=== PATIENT | female | born 1955 | race Caucasian/White ===

== ENCOUNTER → 2016-08-22 16:07 | Outpatient (CLI) | payer MEDICARE, MEDICAID ==
[2016-06-07 11:50] VITALS: BMI 38.5
[~2016-08-22 16:07] MED LIST: ADVAIR 250/501 DISK INH; BAYER CHEWABLE81 MG PO; CELEXA40 MG PO; COZAAR50 MG PO; FLOMAX0.4 MG PO; HYDROXYZINE HCL50 MG PO; IBUPROFEN800 MG PO; LIPITOR40 MG PO; LOPRESSOR25 MG PO; LYRICA50 MG PO; METROGEL 0.75 %45 GM TOPICAL; NYSTATIN1 PWD TOPICAL; PROAIR HFA8.5 GM INH; ROPINIROLE HCL2 MG PO; SINGULAIR10 MG PO; VOLTAREN100 GM TOPICAL; ZONEGRAN100 MG PO
== END | disposition home or self-care (01) ==
LOC: D.MAMMO 09:30 → D.US 10:30 → D.MAMMO 16:07
DX: R92.8 Other abnormal and inconclusive findings on diagnostic imaging of breast (principal)

== ENCOUNTER 2017-03-20 18:38 | Emergency (ER) | payer MEDICARE, MEDICAID ==
[2016-06-07 11:50] VITALS: BMI 38.5
[2017-03-20 19:10] LABS: BASOPHILS 0.3 % (0-2); EOSINOPHILS 3.4 % (0-7); HEMATOCRIT 40.2 % (36.0-48.0); HEMOGLOBIN 13.7 g/dL (12-16); IMMATURE GRANULOCYTES 0.2 % (0-5); LYMPHOCYTES 39.9 % (15-50); MCH 32.2 pg (26.0-34.0); MCHC 34.1 g/dL (31.0-37.0); MCV 94.6 fL (80.0-100.0); MEAN PLATELET VOLUME 11.7 fL (7.4-10.4); MONOCYTES 6.8 % (2-11); NEUTROPHILS 49.4 % (40-80); PLATELET COUNT 124 10x3/uL (130-400); RBC 4.25 10x6/uL (4.00-5.40); RDW 14.4 % (11.5-14.5); WBC 5.8 10x3/uL (4.8-10.8)
[2017-03-20 19:24] LABS: ALBUMIN 3.3 g/dL (3.4-5.0); ALKALINE PHOSPHATASE 88 U/L (46-116); ALT (SGPT) 33 U/L (10-68); BILIRUBIN - TOTAL 0.39 mg/dL (0.2-1.3); CALC OSMOLALITY 284 mosm/kg (275-300); CALCIUM 8.6 mg/dL (8.5-10.1); CARBON DIOXIDE 24.9 mmol/L (21.0-32.0); CHLORIDE - SERUM 109 mmol/L (98-107); CREATININE - SERUM 0.9 mg/dL (0.6-1.3); GLUCOSE 127 mg/dL (74-106); POTASSIUM - SERUM 3.9 mmol/L (3.5-5.1); PROTEIN - SERUM 6.3 g/dL (6.4-8.2); SODIUM 141 mmol/L (136-145); UREA NITROGEN 18 mg/dL (7-18); eGFR NON AFRICAN AMERICAN 67 mL/min (90-120)
[2017-03-20 19:35] LABS: CHOL - HDL RATIO 13.4 ratio (2.3-4.1); CHOLESTEROL, TOTAL 188 mg/dL (0-200); CKMB 0.3 U/L (0.0-3.6); CREATINE KINASE 62 UL (21-215); HDL CHOLESTEROL 14 mg/dL (32-96); LDL CHOLESTEROL 130 mg/dL (0-100); LDL-HDL RATIO 9.3 ratio (1.5-3.5); TRIGLYCERIDE 220 mg/dL (30-200)
[2017-03-20 19:38] LABS: TROPONIN-I < 0.017 ng/mL (0.000-0.060)
== END 2017-03-20 22:30 | disposition home or self-care (01) ==
LOC: D.ER 18:38
PROVIDERS: Family Medicine
DX: R07.9 Chest pain, unspecified (principal); R06.02 Shortness of breath; Z86.711 Personal history of pulmonary embolism; E66.9 Obesity, unspecified; F17.200 Nicotine dependence, unspecified, uncomplicated; R11.0 Nausea; R06.00 Dyspnea, unspecified

== ENCOUNTER → 2017-10-31 19:29 | Outpatient (CLI) | payer MEDICARE ==
[2016-06-07 11:50] VITALS: BMI 38.5
== END | disposition home or self-care (01) ==
LOC: D.MAMMO 09:30
DX: R92.8 Other abnormal and inconclusive findings on diagnostic imaging of breast (principal)

== ENCOUNTER → 2017-12-28 13:30 | Outpatient (CLI) | payer MEDICARE, MEDICAID ==
[2016-06-07 11:50] VITALS: BMI 38.5
== END | disposition home or self-care (01) ==
LOC: D.MRI 13:30
DX: H53.2 Diplopia (principal)

== ENCOUNTER 2018-04-29 15:09 | Observation (INO) | payer MEDICARE, MEDICAID ==
[~2018-04-29] VITALS: Ht 167.6 cm; Wt 120.5 kg
[2018-04-29 15:49] LABS: BASOPHILS 0.4 % (0-2); EOSINOPHILS 2.5 % (0-7); HEMATOCRIT 36.1 % (36.0-48.0); HEMOGLOBIN 11.7 g/dL (12-16); IMMATURE GRANULOCYTES 0.2 % (0-5); LYMPHOCYTES 37.9 % (15-50); MCH 29.1 pg (26.0-34.0); MCHC 32.4 g/dL (31.0-37.0); MCV 89.8 fL (80.0-100.0); MEAN PLATELET VOLUME 11.7 fL (7.4-10.4); MONOCYTES 4.7 % (2-11); NEUTROPHILS 54.3 % (40-80); PLATELET COUNT 139 10x3/uL (130-400); RBC 4.02 10x6/uL (4.00-5.40); RDW 16.1 % (11.5-14.5); WBC 5.5 10x3/uL (4.8-10.8)
[2018-04-29 16:08] LABS: ALBUMIN 3.5 g/dL (3.4-5.0); ALKALINE PHOSPHATASE 77 U/L (46-116); ALT (SGPT) 40 U/L (10-68); BILIRUBIN - TOTAL 0.39 mg/dL (0.2-1.3); CALC OSMOLALITY 297 mosm/kg (275-300); CALCIUM 8.5 mg/dL (8.5-10.1); CARBON DIOXIDE 23.3 mmol/L (21.0-32.0); CHLORIDE - SERUM 110 mmol/L (98-107); CREATININE - SERUM 1.2 mg/dL (0.6-1.3); GLUCOSE 165 mg/dL (74-106); POTASSIUM - SERUM 3.7 mmol/L (3.5-5.1); PROTEIN - SERUM 6.3 g/dL (6.4-8.2); SODIUM 146 mmol/L (136-145); UREA NITROGEN 21 mg/dL (7-18); eGFR NON AFRICAN AMERICAN 48 mL/min (90-120)
[2018-04-29 16:19] LABS: CKMB 0.9 U/L (0.0-3.6); CREATINE KINASE 50 UL (21-215); PRO BNP 249 pg/mL (0-125); TROPONIN-I < 0.017 ng/mL (0.000-0.060)
[2018-04-29 17:04] VITALS: BP 144/75
[2018-04-29 18:40] VITALS: BP 138/72
[2018-04-29 19:34] VITALS: BP 149/77
[2018-04-29 20:34] VITALS: BP 139/76
[2018-04-29 21:30] VITALS: BP 162/87
[2018-04-29 23:12] LABS: CKMB 1.2 U/L (0.0-3.6); CREATINE KINASE 49 UL (21-215)
[2018-04-29 23:16] LABS: TROPONIN-I < 0.017 ng/mL (0.000-0.060)
[2018-04-30] MEDS ORDERED: GABAPENTIN100 MG PO (00:01)
[2018-04-30 04:32] VITALS: BP 116/49; Ht 167.6 cm; Wt 120.5 kg
[2018-04-30 05:11] LABS: BASOPHILS 0.2 % (0-2); EOSINOPHILS 0 % (0-7); HEMATOCRIT 36.3 % (36.0-48.0); HEMOGLOBIN 11.5 g/dL (12-16); IMMATURE GRANULOCYTES 0.3 % (0-5); LYMPHOCYTES 13.7 % (15-50); MCH 28.6 pg (26.0-34.0); MCHC 31.7 g/dL (31.0-37.0); MCV 90.3 fL (80.0-100.0); MEAN PLATELET VOLUME 12.5 fL (7.4-10.4); NEUTROPHILS 84.8 % (40-80); PLATELET COUNT 144 10x3/uL (130-400); RBC 4.02 10x6/uL (4.00-5.40); RDW 16.2 % (11.5-14.5)
[2018-04-30 05:15] VITALS: BP 164/68
[2018-04-30 05:46] LABS: ANION GAP 14.7 mmol/L (8-16); CALCIUM 8.6 mg/dL (8.5-10.1); CARBON DIOXIDE 23.3 mmol/L (21.0-32.0); CREATININE - SERUM 1.3 mg/dL (0.6-1.3)
[2018-04-30 05:53] LABS: CKMB 1.3 U/L (0.0-3.6); CREATINE KINASE 53 UL (21-215); TROPONIN-I < 0.017 ng/mL (0.000-0.060)
[2018-04-30] MEDS ORDERED: LATUDA40 MG PO (08:41)
[2018-04-30 08:49] VITALS: BP 130/82
[2018-04-30 09:16] LABS: CKMB 1.3 U/L (0.0-3.6); CREATINE KINASE 46 UL (21-215); TROPONIN-I < 0.017 ng/mL (0.000-0.060)
[2018-04-30 12:04] VITALS: BP 145/50
== END 2018-04-30 13:53 | disposition left against medical advice (07) ==
LOC: D.ER 15:09 → D.MS 20:50 → D.ER 20:50 → OBSVTIME 20:50 → D.MS 20:50
PROVIDERS: Family Medicine
DX: J44.1 Chronic obstructive pulmonary disease with (acute) exacerbation (principal); M54.9 Dorsalgia, unspecified; I10 Essential (primary) hypertension; G47.33 Obstructive sleep apnea (adult) (pediatric); F31.9 Bipolar disorder, unspecified; E11.40 Type 2 diabetes mellitus with diabetic neuropathy, unspecified; Z87.891 Personal history of nicotine dependence; E66.09 Other obesity due to excess calories; Z68.41 Body mass index [BMI] 40.0-44.9, adult

== ENCOUNTER 2018-06-11 12:15 | Outpatient (CLI) | payer MEDICARE, MEDICAID ==
[~2018-06-11] VITALS: Ht 167.6 cm; Wt 120.5 kg
--- NOTE | ~2018-06-11 | HEMODYNAMI ---
PATIENT:JACINDA DIEGO MEDICAL RECORD: [id number] : 53 LOCATION:[facility] ADMISSION DATE: 06/11/18 Generatedon:06/11/201816:01 Patient name: JACINDA DIEGO Patient #: [id number] SSN: [id number] : 1955 Date of study: 06/11/2018 Page: Of Hemodynamic Procedure Report Patient Data Patient Demographics Procedure consent was obtained First Name: JACINDA Gender: Female Last Name: JOHNATHON : 1955 Middle Initial: W Age: 62 year(s) Patient #: [id number] Race: Unknown SSN: [id number] Additional ID: [id number] Contact details Address: [address] [place] [address] State: [place] City: [place] Zip code: [address] Past Medical History Allergies Allergen Reaction Date Comments Reported Other allergy 06/11/2018 SACHI MENDOZA Admission Admission Data Admission Date: 06/11/2018 Admission Time: 12:15 Height (in.): 66 BSA: 2.25 (m2) Height (cm.): 167.64 BMI: 42.77 (kg/m2) Weight (lbs.): 265 Weight (kg.): 120.2 Procedure Procedure Types Cath Procedure Diagnostic Procedure [facility] w/Coronaries Sedation Charges Moderate Sedation up to 15 minutes PCI Procedure Coronary Stent Coronary Stent Initial Procedure Description Procedure Date Procedure Date: 06/11/2018 Procedure Start Time: 15:39 Procedure End Time: 16:00 Procedure Staff Name Function Tru Mendez MD Performing Physician Pooja Uriarte RT Monitor Sofia Hoffman RT Scrub Claudio Mejia RN Nurse Procedure Data Cath Procedure Fluoroscopy Diagnostic fluoroscopy Total fluoroscopy Time: 4.8 time: 4.8 min min Diagnostic fluoroscopy Total fluoroscopy dose: dose: 1072 mGy 1072 mGy Contrast Material Contrast Material Type Amount (ml) Isovue 300 95 Entry Location Entry Primary Successful Side Size Upsize Upsize Entry Closure Succes sful Closure Location (Fr) 1 (Fr) 2 (Fr) Remarks Device Remarks Radial Right 6 Fr artery Short Estimated blood loss: 10 ml Diagnostic catheters Device Type Used For End Catheter Placement DIAGNOSTIC [place] 110cm 5 Procedure Fr catheter ([id number]) Procedure Complications No complications Procedure Medications Medication Administration Route Dosage 0.9% NaCl I.V. 100 ml/hr Oxygen etCO2 Nasal cannula 2 l/min Heparin Flush Bag added to field 2 bags (1000units/500ml NS) Lidocaine 2% added to field 20 Radial Cocktail added to field 1 syringe (Verapomil 2mg/Nitro 400mcg/Heparin 1500units) Versed I.V. 2 mg Fentanyl I.V. 100 mcg Versed I.V. 2 mg Radial Cocktail I.A. 1 syringe (Verapomil 2mg/Nitro 400mcg/Heparin 1500units) Fentanyl I.V. 50 mcg Heparin Bolus I.V. 5000 units Integrilin (Bolus I.V. 10.7 ml 2mg/ml) Integrilin (Bolus wasted 9.3 ml 2mg/ml) Fentanyl I.V. 50 mcg Versed I.V. 2 mg Plavix P.O. 600 mg Hemodynamics Rest BSA: 2.25 (m2) O2 Consumption: Estimated: 212.3 (ml/min) O2 Consumption indexed: Estimated:94.36 (ml/min/m) Heart Rate: 71 (bpm) Pressure Samples Time Site Value (mmHg) Purpose Heart Use Rate(bpm) 15:42 LV 132/-2,14 Snapshot 95 15:42 AO 105/71(86) Pullback 95 15:42 LV 112/12,11 Pullback 95 Gradients Valve Time Site 1 Site 2 Mean SEP/DFP Peak To Heart Use (mmHg) (sec/min) Peak Rate (mmHg) (bpm) Aortic 15:42 LV AO 9 23 7 95 112/12,11 105/71(86) Calculations Valve P-P Mean Valve Index Valve Source Name Gradient Area Flow (cm2) Aortic 7 9 7 9 Snapshots Pre Cath Intra NCS Post Cath Vital Signs Time Heart Resp SPO2 etCO2 NIBP (mmHg) Rhythm Pain Sedation Rate (ipm) (%) (mmHg) Status Level (bpm) 15:26:30 73 19 98 0 138/83(109) NSR 0 (11) 10(A) , No pain 15:30:52 74 14 96 4.5 141/84(110) NSR 0 (11) 10(A) , No pain 15:35:12 75 17 94 3.7 123/81(104) NSR 0 (11) 10(A) , No pain 15:39:30 76 20 94 5.2 131/81(98) NSR 0 (11) 10(A) , No pain 15:43:52 109 17 91 7.5 139/77(98) NSR 0 (11) 10(A) , No pain 15:48:16 80 15 92 4.5 116/75(94) NSR 0 (11) 10(A) , No pain 15:52:30 81 14 93 4.5 127/79(109) NSR 0 (11) 10(A) , No pain 15:56:46 85 17 93 13.5 121/83(110) NSR 0 (11) 10(A) , No pain Medications Time Medication Route Dose Verified Delivered Reason Not es Effectiveness by by 15:31:11 0.9% NaCl I.V. 100 Claudio Claudio Per physician ml/hr Roberto Mejia RN RN 15:31:21 Oxygen etCO2 2 l/min Claudio Claudio Per physician Nasal Roberto Mejia cannula RN RN 15:31:33 Heparin Flush added 2 bags Claudio Claudio used for Bag to Lorigan Roberto procedure (1000units/500ml [facility] RN RN NS) 15:31:45 Lidocaine 2% added 20ml Claudio Claudio for local to vial Lorigan Lorigan anesthetic RN RN 15:32:09 Radial Cocktail added 1 Claudio Claudio used for (Verapomil to syringe Lorigan Lorigan procedure 2mg/Nitro RN RN 400mcg/Heparin 1500units) 15:35:36 Versed I.V. 2 mg Claudio Claudio for sedation Roberto Mejia RN RN 15:35:45 Fentanyl I.V. 100 mcg Claudio Claudio for sedation Roberto Mejia RN RN 15:39:57 Versed I.V. 2 mg Claudio Claudio for sedation Roberto Meija RN RN 15:41:49 Radial Cocktail I.A. 1 Claudio Tru for (Verapomil syringe Lorigan Vanessa vasodilation 2mg/Nitro DILIA MALONE 400mcg/Heparin 1500units) 15:44:07 Fentanyl I.V. 50 mcg Claudio Claudio for sedation Roberto Mejia RN RN 15:49:31 Heparin Bolus I.V. 5000 Claudio Claudio for units Roberto Mejia anticoagulation RN RN 15:49:52 Integrilin I.V. 10.7 ml Claudio Claudio for (Bolus 2mg/ml) Roberto Mejia antiplatelet RN RN therapy 15:50:38 Integrilin wasted 9.3 ml Claudio Claudio to sharp's (Bolus 2mg/ml) Roberto Mejia RN RN 15:50:44 Fentanyl I.V. 50 mcg Claudio Claudio for sedation Roberto Mejia RN RN 15:54:05 Versed I.V. 2 mg Claudio Claudio for sedation Roberto Mejia RN RN 15:58:48 Plavix P.O. 600 mg Claudio Claudio for Roberto Mejia antiplatelet RN RN therapy Procedure Log Time Note 15:18:29 Time tracking: Regular hours (M-F 7:00 - 5:00) 15:18:33 Plan of Care:Hemodynamics will remain stable., Cardiac rhythm will remain stable., Comfort level will be maintained., Respiratory function will remain adequate., Patient/ family verbilizes understanding of procedure., Procedure tolerated without complication., Recovers from procedure without complications.. 15:18:51 Claudio Mejia RN sent for patient. Start room use. 15:20:32 Patient received from Pre/Post Procedure Room to CCL 1 Alert and oriented. Tansferred to table in Supine position. 15:20:34 Warm blankets applied, and jessenia hugger turned on for patient comfort. 15:20:34 Correct patient and procedure confirmed by team. 15:20:35 Signed procedure consent form obtained from patient. 15:20:36 ECG and BP/O2 sat monitors applied to patient. 15:20:37 Full Disclosure recording started 15:25:25 Vital chart was started 15:31:11 0.9% NaCl 100 ml/hr I.V. was administered by Claudio Mejia RN; Per physician; 15:31:21 Oxygen 2 l/min etCO2 Nasal cannula was administered by Claudio Mejia RN; Per physician; 15:31:33 Heparin Flush Bag (1000units/500ml NS) 2 bags added to field was administered by Claudio Lorigan RN; used for procedure; 15:31:45 Lidocaine 2% 20ml vial added to field was administered by Claudio Mejia RN; for local anesthetic; 15:32:09 Radial Cocktail (Verapomil 2mg/Nitro 400mcg/Heparin 1500units) 1 syringe added to field was administered by Claudio Mejia RN; used for procedure; 15:32:16 Baseline sample Acquired. 15:32:20 Rhythm: sinus rhythm 15:32:54 H&P Date Dictated: 04/26/2018 Within 30 days and on chart., H&P Addendum completed by physician on day of procedure. (MUST COMPLETE FOR ALL OUTPATIENTS). 15:32:55 Pre-procedure instructions explained to patient. 15:32:55 Pre-op teaching completed and patient verbalized understanding. 15:32:57 Family in patients room. 15:32:58 Patient NPO since Midnight. 15:33:14 Patient allergic to Other allergyCODEINE, KEFLEX 15:33:17 Is patient on blood thinner?No 15:33:20 Patient diabetic? No. 15:33:28 Snore? Yes 15:33:29 Sleep apnea? Yes 15:33:31 Deviated septum? No 15:33:32 Opens mouth fully? Yes 15:33:32 Sticks out tongue? Yes 15:33:35 Airway obstruction? Yes COPD 15:33:42 Dentures? Yes DENTURE IN TIGHT 15:33:46 Modified Reuben's test Ulnar < 7 seconds 15:33:52 IV patent on arrival in left hand with 0.9% NaCl at KVO. 15:33:55 Lab results completed and on chart. 15:33:58 Right Radial & Right Groin area was prepped with chlora-prep and draped in sterile fashion 15:33:59 Alarms reviewed by R. N. 15:34:02 Sharps counted by scrub and verified by R.N. 15:34:04 --------ALL STOP TIME OUT------ 15:34:04 Final Timeout: patient, procedure, and site verified with staff and physician. All members of the team are in agreement. 15:34:06 Right Radial & Right Groin site verified by team. 15:34:11 Physical assessment completed. ASA score P 2 - A patient with mild systemic disease as per Tur Mendez MD. 15:34:14 Sedation plan: IV Moderate Sedation Medication:Versed, Fentanyl 15:35:34 Patient Height : 66 inches 15:35:36 Versed 2 mg I.V. was administered by Claudio Mejia RN; for sedation; 15:35:38 Patient Weight : 265 lbs 15:35:45 Fentanyl 100 mcg I.V. was administered by Claudio Mejia RN; for sedation; 15:36:58 Use device set Radial Dx or PCI 15:37:00 ACIST Syringe (52463) opened to sterile field. 15:37:00 Bag Decanter (2002) opened to sterile field. 15:37:01 ACIST Hand Control (32224) opened to sterile field. 15:37:01 ACIST Manifold (58811) opened to sterile field. 15:37:03 Tegaderm 4 x 4 (1626W) opened to sterile field. 15:37:05 Medline Cath Pack ([id number]) opened to sterile field. 15:37:05 DIAGNOSTIC WIRE .035 260cm J wire (947090) opened to sterile field. 15:37:05 MBrace Wrist Support ([id number]) opened to sterile field. 15:37:07 SHEATH 6Fr Prelude Radial ([id number]) opened to sterile field. 15:39:11 Zero performed for pressure channel P1 15:39:17 Zero performed for pressure channel P1 15:39:22 Procedure started. 15:39:27 Zero performed for pressure channel P1 15:39:32 Zero performed for pressure channel P1 15:39:43 Local anesthetic to right radial artery with Lidocaine 2% by Tru Mendez MD.INITIAL ACCESS ONLY 15:39:57 Versed 2 mg I.V. was administered by Claudio Mejia RN; for sedation; 15:40:24 A 6 Fr Short sheath was inserted into the Right Radial artery 15:41:33 A DIAGNOSTIC [place] 110cm 5 Fr catheter (512759) was advanced over the wire and used for Procedure. 15:41:39 LV gram done using [place] 15:41:41 Injector settings: Ml/sec: 5, Volume: 15, 15:41:49 Radial Cocktail (Verapomil 2mg/Nitro 400mcg/Heparin 1500units) 1 syringe I.A. was administered by Tru Mendez MD; for vasodilation; 15:42:23 LV hemodynamics recorded. 15:42:43 EF : 55 % 15:43:38 LCA angiography performed. 15:44:03 RCA angiography performed. 15:44:07 Fentanyl 50 mcg I.V. was administered by Claudio Mejia RN; for sedation; 15:44:44 WHISPER 300cm guide wire ([id number]) opened to sterile field. 15:44:45 INFLATOR Merit BasixCompak (ZI4945) opened to sterile field. 15:44:50 Catheter exchanged over wire. 15:45:36 GUIDE 6FR HS I catheter (LA6HSI) opened to sterile field. 15:46:24 6 Fr HS1 guide catheter was inserted over the wire 15:49:31 Heparin Bolus 5000 units I.V. was administered by Claudio Mejia RN; for anticoagulation; 15:49:52 Integrilin (Bolus 2mg/ml) 10.7 ml I.V. was administered by Claudio Mejia RN; for antiplatelet therapy; 15:50:38 Integrilin (Bolus 2mg/ml) 9.3 ml wasted was administered by Claudio Mejia RN; to sharp's; 15:50:40 WHISPER 300 wire advanced. 15:50:44 Fentanyl 50 mcg I.V. was administered by Claudio Mejia RN; for sedation; 15:52:10 Wire advanced across lesion. 15:53:07 Place stent Inflation Number: 1 A DEWAYNE OTW 3.5 x 12 stent ([id number]) was prepped and advanced across the Dist RCA. The stent was deployed at 14 SAMUEL for 0:15 (min:sec). 15:53:18 Stent catheter was removed intact over wire. 15:54:05 Versed 2 mg I.V. was administered by Claudio Mejia RN; for sedation; 15:56:06 Place stent Inflation Number: 1 A DEWAYNE OTW 3.5 x 26 stent ([id number]) was prepped and advanced across the Mid RCA. The stent was deployed at 14 SAMUEL for 0:15 (min:sec). 15:56:15 Stent catheter was removed intact over wire. 15:56:36 Wire removed. 15:56:37 Guide catheter removed. 15:57:04 Procedure ended.(Physican Out) 15:58:21 TR BAND Large (VIA30NIN) opened to sterile field. 15:58:35 Fluoroscopy time 04.80 minutes. 15:58:39 Fluoroscopy dose: 1072 mGy 15:58:39 Flurop Dose total: 1072 15:58:44 Contrast amount:Isovue 300 95ml. 15:58:45 Sharps counted by scrub and verified by R.N. 15:58:47 TR band inflated with 10cc of air. 15:58:48 Plavix 600 mg P.O. was administered by Claudio Mejia RN; for antiplatelet therapy; 15:58:52 Post-procedure physical assessment completed. ASA score P 2 - A patient with mild systemic disease as per Tru Mendez MD. 15:58:55 Post procedure rhythm: sinus rhythm 15:58:57 Estimated blood loss: 10 ml 15:58:58 Post procedure instruction explained to patient.Patient verbalizes understanding. 15:58:59 Patient needs reinforcement of post procedure teaching. 15:59:27 Procedure type changed to Cath procedure, Diagnostic procedure, LHC, LHC w/Coronaries, Sedation Charges, Moderate Sedation up to 15 minutes, PCI procedure, Coronary Stent, Coronary Stent Initial 15:59:48 Procedure and supply charges have been captured, reviewed, submitted and are correct. 15:59:51 Procedure Complication : No complications 15:59:53 Vital chart was stopped 15:59:53 See physician's report for complete and final results. 15:59:56 Report given to Pre/Post Procedure Room. 15:59:58 Patient transfered to Pre/Post Procedure Room with Bed. 16:00:00 Procedure ended. 16:00:00 Full Disclosure recording stopped 16:00:06 End room use (Document Last) Intervention Summary Intervention Notes Time ActionType Lesion and Equipment Action# Pressure Duration Attributes Used 15:53:07 Place stent Dist RCA DEWAYNE OTW 3.5 1 14 00:15 x 12 stent ([id number]) 15:56:06 Place stent Mid RCA DEWAYNE OTW 3.5 1 14 00:15 x 26 stent ([id number]) Device Usage Item Name Manufacture Quantity Catalog Number Hospital Part Current Minimal Lot# / Charge Number Stock Stock Serial# Code ACIST Syringe Acist 1 17365 757138 700596 286281 20 (40598) ChemDAQ Bag Decanter Microtek 1 2001S 562032 13091 607430 5 (2002S) Medical Inc. ACIST Hand Acist 1 86003 888745 724284 725853 5 Control (57064) Medical Systems Inc ACIST Manifold Acist 1 12854 092033 655640 476500 5 (87120) Medical Systems Inc Tegaderm 4 x 4 3M 1 1626W 022012 549383 782834 5 (1626W) Medline Cath Medline 1 [id number] 995345 00118 880103 5 Pack ([id number]) DIAGNOSTIC WIRE St Magdiel 1 939993 189868 273589 441240 30 .035 260cm J wire (573242) MBrace Wrist Advanced 1 140-0250-00 162916 50299 819970 5 Support Vascular ([id number]) Dynamics SHEATH 6Fr Merit 1 [id number] 863370 354014 248880 5 Prelude Radial Medical ([id number]) DIAGNOSTIC Terumo 1 40-9105 009057 839566 604488 5 [place] 110cm 5 Fr catheter (059145) WHISPER 300cm Mack 1 [id number] 776229 275886 555959 5 guide wire Vascular ([id number]) INFLATOR Merit Merit 1 XA6485 715991 816378 194194 15 beBetter Health Medical ([id number]) GUIDE 6FR HS I Medtronic 1 LA6HSI 966150 98870 777287 1 catheter (LA6HSI) DEWAYNE OTW 3.5 x Medtronic 1 [id number] 035919 7206890 924898 5 [id number] 12 stent ([id number]) DEWAYNE OTW 3.5 x Medtronic 1 [id number] 957703 8205762 531394 5 [id number] 26 stent ([id number]) TR BAND Large Terumo 1 [id number] 677632 548050 792091 40 ([id number]) Signature Audit [place] Stage Time Signature Unsigned Intra-Procedure 06/11/2018 Pooja Uriarte 4:01:39 PM RT(R) Signatures Monitor : Pooja Uriarte Signature : RT Date : Time : [place] [address] [place] [address]
--- NOTE | ~2018-06-11 | OP ---
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 CATHETERS: [place] catheter and radial sheath. The procedure was well tolerated. FINDINGS: Left ventriculography in 30-degree BILLINGSLEY view: Normal wall motion and normal systolic function. CORONARY ANATOMY: LEFT MAIN: Left main is free of disease. LAD: Free of disease in the diagonal system. CIRCUMFLEX: Free of disease in the marginal system. RIGHT CORONARY ARTERY: Dominant artery, giving rise to PDA. It shows discrete stenosis distally of 80%, more proximal diffuse stenosis of 80%, correlating nicely with nuclear study. IMPRESSION: Coronaries as described above. PLAN: Intervention momentarily. DESCRIPTION OF PROCEDURE: Hockey stick guide catheter provided excellent guide catheter support followed by 300-cm Whisper wire, which was placed across the tightly occluded right coronary distal portion of this vessel, distal stent deployed was a 3.5 x 12-mm Mason drug-eluting stent and proximally, for the diffuse stenosis, a 3.5 x 26-mm [place] drug-eluting stent which were inflated up to 14 atmospheres for 45 seconds. Final angiography shows excellent resolution of both stenoses, no significant residual. VANNESA flow was 3 throughout the procedure. Integrilin was used in the case. Sheath was closed with TR band. Plavix was loaded in the lab. TRANSINT:[id number] Voice Confirmation ID: [id number] DOCUMENT ID: [id number] KATELYNN RIVERA MD at 1418 CC: [id number] DICTATION DATE: 06/11/18 1606 ADMINISTRATIVE ASSISTANT: 06/11/18 1832 DEP CLI 06/11/18 [place] [id number]
[~2018-06-11 12:15] MED LIST changes: +GABAPENTIN100 MG PO; +LATUDA40 MG PO
[2018-06-11] MEDS ORDERED: ANORO ELLIPTA1 EACH INH (12:50)
[2018-06-11] MEDS ORDERED: CHANTIX 1 MG TAB1 MG PO (12:51)
[2018-06-11] MEDS ORDERED: FENOFIBRATE134 MG PO (12:52)
[2018-06-11] MEDS ORDERED: CYMBALTA30 MG PO (12:52)
[2018-06-11] MEDS ORDERED: MOBIC7.5 MG PO (12:54)
[2018-06-11] MEDS ORDERED: OMEPRAZOLE20 M1 PO (12:55)
[2018-06-11] MEDS ORDERED: ULTRAM50 MG PO (12:57)
[2018-06-11] MEDS ORDERED: ZANAFLEX4 MG PO (12:57)
[2018-06-11 13:30] VITALS: BP 128/74; Ht 167.6 cm; Wt 120.5 kg
[2018-06-11 13:39] LABS: ANION GAP 12.1 mmol/L (8-16); CALCIUM 9.4 mg/dL (8.5-10.1); CARBON DIOXIDE 26.7 mmol/L (21.0-32.0); CREATININE - SERUM 1.1 mg/dL (0.6-1.3); POTASSIUM - SERUM 4.8 mmol/L (3.5-5.1)
[2018-06-11 14:13] LABS: BASOPHILS 0.4 % (0-2); EOSINOPHILS 1.4 % (0-7); HEMATOCRIT 36.4 % (36.0-48.0); HEMOGLOBIN 11.7 g/dL (12-16); IMMATURE GRANULOCYTES 0.1 % (0-5); MCH 28.9 pg (26.0-34.0); MCHC 32.1 g/dL (31.0-37.0); MCV 89.9 fL (80.0-100.0); MEAN PLATELET VOLUME 12.2 fL (7.4-10.4); MONOCYTES 9.2 % (2-11); NEUTROPHILS 55.9 % (40-80); PLATELET COUNT 164 10x3/uL (130-400); RBC 4.05 10x6/uL (4.00-5.40); RDW 15.9 % (11.5-14.5)
[2018-06-11] MEDS ORDERED: BAYER CHEWABLE81 MG PO (19:40)
[2018-06-11] MEDS ORDERED: PLAVIX75 MG PO (19:40)
== END 2018-06-11 20:00 | disposition home or self-care (01) ==
LOC: D.CATH 12:15
PROVIDERS: Internal Medicine Interventional Cardiology
DX: I25.110 Atherosclerotic heart disease of native coronary artery with unstable angina pectoris (principal); R94.30 Abnormal result of cardiovascular function study, unspecified
CPT/HCPCS: C9600; 93458

== ENCOUNTER 2018-06-28 11:14 | Inpatient (IN) | payer MEDICARE, MEDICAID ==
[~2018-06-28] VITALS: Ht 167.6 cm; Wt 122.7 kg
[2018-06-28] VITALS (10 sets, daily range): BP systolic 122–144; BP diastolic 52–115; BMI 44.9
--- NOTE | ~2018-06-28 | EC ---
PATIENT:JACINDA DIEGO DATE OF SERVICE: 06/28/18 SEX: F MEDICAL RECORD: [id number] DATE OF : 53 LOCATION:[place] [address] AGE OF PATIENT: 62 ADMISSION DATE: 06/28/18 REFERRING PHYSICIAN: INTERPRETING PHYSICIAN: KATELYNN RIVERA MD ECHOCARDIOGRAM REPORT ECHO CHARGES 4 ECHO COMPLETE Date: 07/03/18 CLINICAL DIAGNOSIS: CHF ECHOCARDIOGRAPHIC MEASUREMENTS (adult normal given) AC root (d.<3.7cm) 3.3 cm LV Septum d (<1.2 cm> 0.9 cm Valve Excursion 1.6 cm LV Septum (systole) 1.0 cm Left Atria (s.<4.0cm> 3.7 cm LVPW d(<1.2cm) 0.9 cm RV (d.<2.3cm) 2.6 cm LVPW (sytole) 1.3 cm LV diastole(<5.6CM) 5.8 cm MV E-F(>70mm/sec) cm LV systole 5.0 cm LVOT Diameter 1.8 cm MV exc.(>10mm) cm Est.ejection fraction (50-75%) % DOPPLER: LVIT cm/sec A 101 cm/sec E 76 cm/sec LA cm/sec RVSP 31.7 mmHg LVOT 112 cm/sec AOP1/2T m/s Asc. Ao 156 cm/sec RVOT 83 cm/sec RA cm/sec PA 78 cm/sec AV Gradient Peak 9.8 mmHg AV Mean 5.4 mmHg AV Area 1.8 cm MV Gradient Peak 7.3 mmHg MV Mean 4.6 mmHg MV Area cm COMMENTS: [place]: Cece LEIGH Manager [employer]: 3 Dr. Pascal TAPE# PACS Pericardial Effusion N DATE OF SERVICE: Adequate 2D, color flow and spectral Doppler, and M-mode. No LVH. LV internal dimensions are normal. Wall motion is normal. EF is greater than or equal to 55%. Aortic valve is sclerotic. There is no evidence of stenosis on Doppler interrogation. Left atrium is normal at 3.7 cm. Mitral valve showed no prolapse. Trace MR. Right-sided chambers grossly normal. Trace TR. TRANSINT:[id number] Voice Confirmation ID: [id number] DOCUMENT ID: [id number] ECHOCARDIOGRAM REPORT [id number] JACINDA DIEGO KATELYNN RIVERA A MD at 1303 CC: [id number] DICTATION DATE: 07/04/18833 WEB SITE SPECIALIST: 07/04/18 0848 DIS IN 07/03/18 [facility] [address] [place] [address]
--- NOTE | ~2018-06-28 | MORECARE ---
CASE MANAGEMENT DISCHARGE SUMMARY PATIENT: JACINDA DIEGO UNIT: [id number] ADM DATE: 06/28/18 AGE: 62 : 53 SEX: F ROOM/BED: D.2312 AUTHOR: KSENIA,DOC PHYSICIAN: REFERRING PHYSICIAN: BROOKE PIMENTEL MD DATE OF SERVICE: 07/02/18 Discharge Plan Patient Name: JACINDA DIEGO Facility[facility]:[place] : 1955 Planned Disposition: Home Anticipated Discharge Date: Discharge Date: Expected LOS: Initial Reviewer: [email or web address] Initial Review Date: 07/02/2018 Generated: 07/02/18 2:26 pm Comments DCP- Discharge Planning Updated by [email or web address]: Nkechi Saenz on 07/02/18 12:[address] Patient Name: JACINDA DIEGO Admission Status: ER Accout number: [id number] Admission Date: 06-28-2018 : 1955 Admission Diagnosis: Attending: BROOKE PIMENTEL Current LOS: 4 Anticipated DC Date: Planned Disposition: Home Primary Insurance: [employer] MEDICARE ADV Discharge Planning Comments: CM met with patient at bedside. Patient states that she plans on returning to her home upon discharge. Patient states that she has portable 02 tanks but they are too heavy for her to use for transport. Patient states she does have CPAP and home 02 that she uses at night. Patient is requesting for a walker with a seat upon discharge d/t her shortness of breath with ambulation. CM will continue to follow and assist as needed with discharge planning / needs Tapper Hand: Nkechi Saenz DCP- Discharge Planning Updated by [email or web address]: Nkechi Saenz on 06/29/18 6:[address] CM HAS ATTEMPTED TO SPEAK WITH PATIENT REGARDING DISCHARGE PLANNING. PATIENT IS CURRENTLY ON VENT/ SEDATED. NO FAMILY AT BEDSIDE. CM WILL CONTINUE TO FOLLOW AND ASSIST NEEDED WITH DISCHRGE PLANNING /NEEDS DCPIA - Discharge Planning Initial Assessment Updated by [email or web address]: Nkechi Saenz on 07/02/18 1:15 pm * Is the patient Alert and Oriented? Yes * How many steps to enter\exit or inside your home? * PCP Tonie Rodriges * Pharmacy [facility] * Preadmission Environment Home with Family * ADLs Independent * Other Equipment CPAP, home 02 with portable tanks available, car nebulizer for emergency use? * List name and contact numbers for known caregivers / representatives who currently or will assist patient after discharge: Ray izaguirrefrienyared- [phone] * Verbal permission to speak to the caregivers and representatives has been obtained from the patient. N/A * Community resources currently utilized None * Additional services required to return to the preadmission environment? No * Can the patient safely return to the preadmission environment? Yes * Has this patient been hospitalized within the prior 30 days at any hospital? Yes Last DP export: 07/02/18 12:19 Patient Name: JACINDA DIEGO Page [id number] at 1327 All edits/amendments must be made on the electronic document DICTATION DATE: 07/02/18 1326 BRICK VENEER MAKER: JOSE RAFAEL 07/02/18 1326 RPT#: [id number] DC DATE: STATUS: ADM IN [facility] [address] [place] [address] END OF REPORT
--- NOTE | ~2018-06-28 | MORECARE ---
CASE MANAGEMENT DISCHARGE SUMMARY PATIENT: JACINDA DIEGO UNIT: [id number] ADM DATE: 06/28/18 AGE: 62 : 54 SEX: F ROOM/BED: D.2312 AUTHOR: KSENIA,DOC PHYSICIAN: REFERRING PHYSICIAN: BROOKE PIMENTEL MD DATE OF SERVICE: 07/03/18 Discharge Plan Patient Name: JACINDA DIEGO Facility: [facility]:[place] : 1955 Planned Disposition: Home Anticipated Discharge Date: Discharge Date: 07/03/2018 Expected LOS: Initial Reviewer: [email or web address] Initial Review Date: 07/02/2018 Generated: 07/03/18 4:53 pm Comments DCP- Discharge Planning Updated by [email or web address]: Nkechi Saenz on 07/02/18 12:[address] Patient Name: JACINDA DIEGO Admission Status: ER Accout number: [id number] Admission Date: 06-28-2018 : 1955 Admission Diagnosis: Attending: BROOKE PIMENTEL Current LOS: 4 Anticipated DC Date: Planned Disposition: Home Primary Insurance: [employer] ADV Discharge Planning Comments: CM met with patient at bedside. Patient states that she plans on returning to her home upon discharge. Patient states that she has portable 02 tanks but they are too heavy for her to use for transport. Patient states she does have CPAP and home 02 that she uses at night. Patient is requesting for a walker with a seat upon discharge d/t her shortness of breath with ambulation. CM will continue to follow and assist as needed with discharge planning / needs Caretaker Resort: Nkechi Saenz DCP- Discharge Planning Updated by [email or web address]: Nkechi Saenz on 06/29/18 6:[address] CM HAS ATTEMPTED TO SPEAK WITH PATIENT REGARDING DISCHARGE PLANNING. PATIENT IS CURRENTLY ON VENT/ SEDATED. NO FAMILY AT BEDSIDE. CM WILL CONTINUE TO FOLLOW AND ASSIST NEEDED WITH DISCHRGE PLANNING /NEEDS DCPIA - Discharge Planning Initial Assessment Updated by [email or web address]: Nkechi Saenz on 07/02/18 1:15 pm * Is the patient Alert and Oriented? Yes * How many steps to enter\exit or inside your home? * PCP Tonie Rodriges * [facility] * Preadmission Environment Home with Family * ADLs Independent * Other Equipment CPAP, home 02 with portable tanks available, car nebulizer for emergency use? * List name and contact numbers for known caregivers / representatives who currently or will assist patient after discharge: Ray Melo -dennyfriend- [phone] * Verbal permission to speak to the caregivers and representatives has been obtained from the patient. N/A * Community resources currently utilized None * Additional services required to return to the preadmission environment? No * Can the patient safely return to the preadmission environment? Yes * Has this patient been hospitalized within the prior 30 days at any hospital? Yes External Providers External Provider: [facility] Contact Date: Service Request Date: Service Type: Resolution: Reviewer: Comments: Santhosh MACEDO export: 07/02/18 12:27 Patient Name: JACINDA DIEGO Page [phone] at 1553 All edits/amendments must be made on the electronic document DICTATION DATE: 07/03/181551 SALES DATA ANALYST: JOSE RAFAEL 07/03/181551 RPT#: [id number] DC DATE:07/03/18 STATUS: DIS IN [facility] [address] [place] [address] END OF REPORT
--- NOTE | ~2018-06-28 | CN ---
PATIENT NAME:JACINDA DIEGO MEDICAL RECORD: [id number] : 53 LOCATION:PHONGD.2312 ADMIT DATE: 06/28/18 ACCOUNT: [id number] CONSULTING PHYSICIAN: JESÚS WEAVER MD REFERRING PHYSICIAN: BROOKE LEIJA MD DATE OF CONSULTATION: 06/28/2018 CONSULT REQUESTING PHYSICIAN: Brooke Leija MD REASON FOR CONSULTATION: Vent management and angioedema. HISTORY OF PRESENT ILLNESS: Ms. Diego is a 62-year-old female who was brought into the ER for shortness of breath. She was feeling like her throat is closing up on her. She was intubated. There is no documented stridor. REVIEW OF THE SYSTEMS: The detail is not obtainable. PAST MEDICAL HISTORY: 1. COPD. 2. Hypertension. 3. Coronary artery disease. PAST SURGICAL HISTORY: 1. She had appendectomy. 2. Cholecystectomy. 3. T&A. 4. Hysterectomy. 5. Bladder mesh surgery. ALLERGIES: SHE IS ALLERGIC TO CEPHALEXIN AND CODEINE. MEDICATIONS: Qualiall was reviewed. PERSONAL AND SOCIAL HISTORY: The patient is nondrinker. Probably, she is ex-smoker. FAMILY HISTORY: Significant for cardiovascular diseases. PHYSICAL EXAMINATION: GENERAL: Now, the patient is orally intubated and sedated. VITAL SIGNS: The blood pressure is 122/52, pulse is 66, respiration is 21, temperature is 98.1, and SpO2 is 98% on assist control mechanical ventilation. HEENT: Conjunctivae are pink. Sclerae are not icteric. NECK: Neck is supple. No JVD. CHEST: There is no wheeze and no rale. HEART: Rhythm regular. Normal sound. No murmur. ABDOMEN: Abdomen is soft. Bowel sounds present. No hepatosplenomegaly. RECTAL: Deferred. EXTREMITIES: No cyanosis. No clubbing. No pedal edema. SKIN: The skin is warm. Normal turgor. CENTRAL NERVOUS SYSTEM: The patient is awake and alert. There is no obvious cranial nerve abnormality. The gait was not tested. LABORATORY DATA: CBC; the WBC is 5.5, hemoglobin 12.1, hematocrit 37.6, and the platelet count is 161. Chemistry; sodium 139, potassium 4.5, BUN is 14, CONSULT REPORT [id number] JACINDA DIEGO creatinine 0.9, and glucose 137. DIAGNOSTIC DATA: Chest radiograph; there is no acute infiltrate. IMPRESSION: 1. Acute hypoxic respiratory failure. 2. Angioedema. 3. Acute dyspnea. 4. COPD. 5. Morbid obesity. RECOMMENDATION: 1. Continue mechanical ventilation, adjust the setting. 2. Albuterol/ipratropium nebulizer. 3. Brovana and budesonide nebulizer. 4. Adjust the dose of methylprednisolone IV. 5. Famotidine 20 mg b.i.d. 6. Benadryl IV. 7. Check C4 complement level and PHOEBE level. Check the C-reactive protein. Check C1 esterase inhibitor level. Follow up labs and chest radiograph. 8. Stress ulcer prevention and DVT prophylaxis. Dr. Leija, thank you for involving me in the care of Ms. Diego. TRANSINT:[id number] Voice Confirmation ID: [id number] DOCUMENT ID: [id number] JESÚS WEAVER MD at 1711 CC: [id number] DICTATION DATE: 06/28/181819 OPTICAL LENS MANUFACTURING TECH: 06/28/18 2331 DIS IN 07/03/18 [facility] [address] [place] [address]
--- NOTE | ~2018-06-28 | MORECARE ---
CASE MANAGEMENT DISCHARGE SUMMARY PATIENT: JACINDA DIEGO UNIT: [id number] ADM DATE: 06/28/18 AGE: 62 : 54 SEX: F ROOM/BED: D.2312 AUTHOR: KSENIADOC PHYSICIAN: REFERRING PHYSICIAN: BROOKE PIMENTEL MD DATE OF SERVICE: 07/03/18 Discharge Plan Patient Name: JACINDA DIEGO Facility: [facility]:[place] : 1955 Planned Disposition: Home Anticipated Discharge Date: Discharge Date: 07/03/2018 Expected LOS: Initial Reviewer: [email or web address] Initial Review Date: 07/02/2018 Generated: 07/03/18 7:31 pm Comments DCP- Discharge Planning Updated by [email or web address]: Nkechi Saenz on 07/02/18 12:[address] Patient Name: JACINDA DIEGO Admission Status: ER Accout number: [id number] Admission Date: 06-28-2018 : 1955 Admission Diagnosis: Attending: BROOKE PIMENTEL Current LOS: 4 Anticipated DC Date: Planned Disposition: Home Primary Insurance: [employer] ADV Discharge Planning Comments: CM met with patient at bedside. Patient states that she plans on returning to her home upon discharge. Patient states that she has portable 02 tanks but they are too heavy for her to use for transport. Patient states she does have CPAP and home 02 that she uses at night. Patient is requesting for a walker with a seat upon discharge d/t her shortness of breath with ambulation. CM will continue to follow and assist as needed with discharge planning / needs Sports Bookmaker: Nkechi Saenz DCP- Discharge Planning Updated by [email or web address]: Nkechi Saenz on 06/29/18 6:[address] CM HAS ATTEMPTED TO SPEAK WITH PATIENT REGARDING DISCHARGE PLANNING. PATIENT IS CURRENTLY ON VENT/ SEDATED. NO FAMILY AT BEDSIDE. CM WILL CONTINUE TO FOLLOW AND ASSIST NEEDED WITH DISCHRGE PLANNING /NEEDS DCPIA - Discharge Planning Initial Assessment Updated by [email or web address]: Nkechi Saenz on 07/02/18 1:15 pm * Is the patient Alert and Oriented? Yes * How many steps to enter\exit or inside your home? * PCP Tonie Rodriges * [facility] * Preadmission Environment Home with Family * ADLs Independent * Other Equipment CPAP, home 02 with portable tanks available, car nebulizer for emergency use? * List name and contact numbers for known caregivers / representatives who currently or will assist patient after discharge: Ray Melo -dennyfriend- [phone] * Verbal permission to speak to the caregivers and representatives has been obtained from the patient. N/A * Community resources currently utilized None * Additional services required to return to the preadmission environment? No * Can the patient safely return to the preadmission environment? Yes * Has this patient been hospitalized within the prior 30 days at any hospital? Yes Last DP export: 07/03/18 2:53 Patient Name: JACINDA DIEGO Page [id number] at 1832 All edits/amendments must be made on the electronic document DICTATION DATE: 07/03/181830 THREAD GRINDER TOOL: JOSE RAFAEL 07/03/181830 RPT#: [id number] DC DATE:07/03/18 STATUS: DIS IN [facility] [address] [place] [address] END OF REPORT
--- NOTE | ~2018-06-28 | MORECARE ---
CASE MANAGEMENT DISCHARGE SUMMARY PATIENT: JACINDA DIEGO UNIT: [id number] ADM DATE: 06/28/18 AGE: 62 : 53 SEX: F ROOM/BED: D.2312 AUTHOR: TOLU MCCORMACK PHYSICIAN: REFERRING PHYSICIAN: BROOKE PIMENTEL MD DATE OF SERVICE: 07/02/18 Discharge Plan Patient Name: JACINDA DIEGO Facility: [facility]:[place] : 1955 Planned Disposition: Home Anticipated Discharge Date: Discharge Date: Expected LOS: Initial Reviewer: [email or web address] Initial Review Date: 07/02/2018 Generated: 07/02/18 2:19 pm Comments DCP- Discharge Planning Updated by [email or web address]: Nkechi Saenz on 06/29/18 6:[address] CM HAS ATTEMPTED TO SPEAK WITH PATIENT REGARDING DISCHARGE PLANNING. PATIENT IS CURRENTLY ON VENT/ SEDATED. NO FAMILY AT BEDSIDE. CM WILL CONTINUE TO FOLLOW AND ASSIST NEEDED WITH DISCHRGE PLANNING /NEEDS DCPIA - Discharge Planning Initial Assessment Updated by [email or web address]: Nkechi Saenz on 07/02/18 1:15 pm * Is the patient Alert and Oriented? Yes * How many steps to enter\exit or inside your home? * PCP Tonie Rodriges * [facility] * Preadmission Environment Home with Family * ADLs Independent * Other Equipment CPAP, home 02 with portable tanks available, car nebulizer for emergency use? * List name and contact numbers for known caregivers / representatives who currently or will assist patient after discharge: Ray Melo -dennyfrienyared- [phone] * Verbal permission to speak to the caregivers and representatives has been obtained from the patient. N/A * Community resources currently utilized None * Additional services required to return to the preadmission environment? No * Can the patient safely return to the preadmission environment? Yes * Has this patient been hospitalized within the prior 30 days at any hospital? Yes Last DP export: 06/29/18 6:26 Patient Name: JACINDA DIEGO Page 25077 at 1319 All edits/amendments must be made on the electronic document DICTATION DATE: 07/02/181317 POLICY ADVISOR: JOSE RAFAEL 07/02/181317 RPT#: [id number] DC DATE: STATUS: ADM IN [facility] [address] [place] [address] END OF REPORT
--- NOTE | ~2018-06-28 | MORECARE ---
CASE MANAGEMENT DISCHARGE SUMMARY PATIENT: JACINDA DIEGO UNIT: [id number] ADM DATE: 06/28/18 AGE: 62 : 53 SEX: F ROOM/BED: D.[facility] AUTHOR: TOLU MCCORMACK PHYSICIAN: REFERRING PHYSICIAN: BROOKE PIMENTEL MD DATE OF SERVICE: 06/29/18 Discharge Plan Patient Name: JACINDA DIEGO [facility] [facility] 1955 Planned Disposition: Anticipated Discharge Date: Discharge Date: Expected LOS: Initial Reviewer: [email or web address] Initial Review Date: 06/28/2018 Generated: 06/29/18 8:26 pm Comments DCP- Discharge Planning Updated by [email or web address]: Nkechi Saenz on 06/29/18 6:[address] CM HAS ATTEMPTED TO SPEAK WITH PATIENT REGARDING DISCHARGE PLANNING. PATIENT IS CURRENTLY ON VENT/ SEDATED. NO FAMILY AT BEDSIDE. CM WILL CONTINUE TO FOLLOW AND ASSIST NEEDED WITH DISCHRGE PLANNING /NEEDS Patient Name: JACINDA DIEGO Page [phone] at 1926 All edits/amendments must be made on the electronic document DICTATION DATE: 06/29/181925 WELT POCKET MACHINE OPERATOR: JOSE RAFAEL 06/29/181925 RPT#: [id number] DC DATE: STATUS: ADM IN [facility] [address] [place] [address] END OF REPORT
[~2018-06-28 11:14] MED LIST changes: +ANORO ELLIPTA1 EACH INH; +CHANTIX 1 MG TAB1 MG PO; +CYMBALTA30 MG PO; +FENOFIBRATE134 MG PO; +MOBIC7.5 MG PO; +OMEPRAZOLE20 M1 PO; +PLAVIX75 MG PO; +ULTRAM50 MG PO; +ZANAFLEX4 MG PO
[2018-06-28 11:52] LABS: BASOPHILS 0.5 % (0-2); HEMATOCRIT 37.6 % (36.0-48.0); HEMOGLOBIN 12.1 g/dL (12-16); IMMATURE GRANULOCYTES 0.2 % (0-5); LYMPHOCYTES 34.3 % (15-50); MCH 28.5 pg (26.0-34.0); MCHC 32.2 g/dL (31.0-37.0); MCV 88.5 fL (80.0-100.0); MEAN PLATELET VOLUME 11.6 fL (7.4-10.4); MONOCYTES 7.8 % (2-11); NEUTROPHILS 55.2 % (40-80); PLATELET COUNT 161 10x3/uL (130-400); RBC 4.25 10x6/uL (4.00-5.40); RDW 15.8 % (11.5-14.5); WBC 5.5 10x3/uL (4.8-10.8)
[2018-06-28 12:02] LABS: INR 1.14 (0.85-1.17); PROTIME 14.3 SECONDS (11.6-15.0)
[2018-06-28 12:03] LABS: ALBUMIN 3.4 g/dL (3.4-5.0); ALKALINE PHOSPHATASE 89 U/L (46-116); ALT (SGPT) 32 U/L (10-68); APTT 31.2 SECONDS (22.8-39.4); CALC OSMOLALITY 280 mosm/kg (275-300); CARBON DIOXIDE 24.9 mmol/L (21.0-32.0); CHLORIDE - SERUM 107 mmol/L (98-107); CREATININE - SERUM 0.9 mg/dL (0.6-1.3); GLUCOSE 137 mg/dL (74-106); POTASSIUM - SERUM 4.5 mmol/L (3.5-5.1); PROTEIN - SERUM 6.6 g/dL (6.4-8.2); SODIUM 139 mmol/L (136-145); UREA NITROGEN 14 mg/dL (7-18); eGFR NON AFRICAN AMERICAN 67 mL/min (90-120)
[2018-06-28 12:15] LABS: CREATINE KINASE 64 UL (21-215); PRO BNP 225 pg/mL (0-125)
[2018-06-28 12:16] LABS: TROPONIN-I < 0.017 ng/mL (0.000-0.060)
[2018-06-29] VITALS (33 sets, daily range): BP systolic 88–149; BP diastolic 56–891; Ht 167.6 cm; Wt 122.7 kg
[2018-06-29 02:42] LABS: BASOPHILS 0.1 % (0-2); EOSINOPHILS 0 % (0-7); HEMATOCRIT 37.2 % (36.0-48.0); HEMOGLOBIN 12.1 g/dL (12-16); IMMATURE GRANULOCYTES 0.3 % (0-5); LYMPHOCYTES 9.2 % (15-50); MCH 28.7 pg (26.0-34.0); MCHC 32.5 g/dL (31.0-37.0); MCV 88.4 fL (80.0-100.0); MEAN PLATELET VOLUME 11.3 fL (7.4-10.4); MONOCYTES 1.6 % (2-11); NEUTROPHILS 88.8 % (40-80); PLATELET COUNT 161 10x3/uL (130-400); RBC 4.21 10x6/uL (4.00-5.40); RDW 15.6 % (11.5-14.5)
[2018-06-29 02:48] LABS: CREATININE - SERUM 0.9 mg/dL (0.6-1.3)
[2018-06-29 03:09] LABS: ANION GAP 17.7 mmol/L (8-16); POTASSIUM - SERUM 3.7 mmol/L (3.5-5.1)
[2018-06-30] VITALS (24 sets, daily range): BP systolic 103–168; BP diastolic 59–122
[2018-06-30 06:56] LABS: BASOPHILS 0 % (0-2); EOSINOPHILS 0 % (0-7); HEMATOCRIT 32.2 % (36.0-48.0); HEMOGLOBIN 10.3 g/dL (12-16); IMMATURE GRANULOCYTES 0.4 % (0-5); LYMPHOCYTES 6.6 % (15-50); MCH 28.3 pg (26.0-34.0); MCV 88.5 fL (80.0-100.0); MONOCYTES 3.3 % (2-11); NEUTROPHILS 89.7 % (40-80); PLATELET COUNT 162 10x3/uL (130-400); RBC 3.64 10x6/uL (4.00-5.40); RDW 16.1 % (11.5-14.5)
[2018-06-30 06:57] LABS: WBC 16.5 10x3/uL (4.8-10.8)
[2018-06-30 07:04] LABS: POTASSIUM - SERUM 3.8 mmol/L (3.5-5.1)
[2018-06-30 07:19] LABS: ALBUMIN 2.8 g/dL (3.4-5.0); ANION GAP 14.1 mmol/L (8-16); BILIRUBIN - TOTAL 0.35 mg/dL (0.2-1.3); CALCIUM 8.2 mg/dL (8.5-10.1); CARBON DIOXIDE 21.7 mmol/L (21.0-32.0); PROTEIN - SERUM 5.7 g/dL (6.4-8.2)
[2018-07-01] VITALS (23 sets, daily range): BP systolic 127–184; BP diastolic 70–139
[2018-07-01 04:05] LABS: ALBUMIN 3.1 g/dL (3.4-5.0); ANION GAP 12.8 mmol/L (8-16); BASOPHILS 0 % (0-2); BILIRUBIN - TOTAL 0.7 mg/dL (0.2-1.3); CALCIUM 8.9 mg/dL (8.5-10.1); CARBON DIOXIDE 23.9 mmol/L (21.0-32.0); CREATININE - SERUM 0.9 mg/dL (0.6-1.3); EOSINOPHILS 0 % (0-7); HEMATOCRIT 31.9 % (36.0-48.0); HEMOGLOBIN 10.3 g/dL (12-16); IMMATURE GRANULOCYTES 0.7 % (0-5); LYMPHOCYTES 7.4 % (15-50); MCH 28.3 pg (26.0-34.0); MCHC 32.3 g/dL (31.0-37.0); MCV 87.6 fL (80.0-100.0); MEAN PLATELET VOLUME 11.7 fL (7.4-10.4); NEUTROPHILS 88.9 % (40-80); PLATELET COUNT 131 10x3/uL (130-400); POTASSIUM - SERUM 3.7 mmol/L (3.5-5.1); PROTEIN - SERUM 6.1 g/dL (6.4-8.2); RBC 3.64 10x6/uL (4.00-5.40); RDW 15.9 % (11.5-14.5); WBC 14.4 10x3/uL (4.8-10.8)
[2018-07-01] MEDS ORDERED: COZAAR100 MG (11:06)
[2018-07-01 17:07] LABS: C1 ESTERASE INHIBITOR 24 mg/dL (21-39)
[2018-07-02] VITALS (15 sets, daily range): BP systolic 131–167; BP diastolic 64–94
[2018-07-02 03:37] LABS: BASOPHILS 0 % (0-2); EOSINOPHILS 0 % (0-7); HEMATOCRIT 31.3 % (36.0-48.0); HEMOGLOBIN 9.9 g/dL (12-16); IMMATURE GRANULOCYTES 0.7 % (0-5); LYMPHOCYTES 26.9 % (15-50); MCH 27.5 pg (26.0-34.0); MCHC 31.6 g/dL (31.0-37.0); MCV 86.9 fL (80.0-100.0); MEAN PLATELET VOLUME 12.1 fL (7.4-10.4); MONOCYTES 5.8 % (2-11); NEUTROPHILS 66.6 % (40-80); PLATELET COUNT 128 10x3/uL (130-400); RDW 15.5 % (11.5-14.5)
[2018-07-02 03:39] LABS: WBC 8.9 10x3/uL (4.8-10.8)
[2018-07-02 03:55] LABS: ALBUMIN 2.9 g/dL (3.4-5.0); BILIRUBIN - TOTAL 0.78 mg/dL (0.2-1.3); CALCIUM 8.6 mg/dL (8.5-10.1); CARBON DIOXIDE 25.2 mmol/L (21.0-32.0); CREATININE - SERUM 0.9 mg/dL (0.6-1.3); PROTEIN - SERUM 5.9 g/dL (6.4-8.2)
[2018-07-02 04:03] LABS: ANION GAP 11.7 mmol/L (8-16); POTASSIUM - SERUM 2.9 mmol/L (3.5-5.1)
[2018-07-02 11:16] LABS: ANGIOTENSIN CONVERTING ENZYME 120 U/L (14-82)
[2018-07-03 03:00] VITALS: BP 152/78
[2018-07-03 04:44] LABS: BASOPHILS 0.1 % (0-2); EOSINOPHILS 0.3 % (0-7); HEMATOCRIT 30.6 % (36.0-48.0); HEMOGLOBIN 9.8 g/dL (12-16); LYMPHOCYTES 31.3 % (15-50); MCH 27.8 pg (26.0-34.0); MCV 86.7 fL (80.0-100.0); MEAN PLATELET VOLUME 11.9 fL (7.4-10.4); MONOCYTES 7.4 % (2-11); NEUTROPHILS 59.9 % (40-80); PLATELET COUNT 132 10x3/uL (130-400); RBC 3.53 10x6/uL (4.00-5.40); RDW 15.5 % (11.5-14.5); WBC 7.1 10x3/uL (4.8-10.8)
[2018-07-03 05:21] LABS: ALBUMIN 2.8 g/dL (3.4-5.0); ALKALINE PHOSPHATASE 47 U/L (46-116); ALT (SGPT) 32 U/L (10-68); BILIRUBIN - TOTAL 0.57 mg/dL (0.2-1.3); CALC OSMOLALITY 287 mosm/kg (275-300); CALCIUM 8.3 mg/dL (8.5-10.1); CARBON DIOXIDE 26.2 mmol/L (21.0-32.0); CHLORIDE - SERUM 108 mmol/L (98-107); CREATININE - SERUM 0.8 mg/dL (0.6-1.3); GLUCOSE 104 mg/dL (74-106); POTASSIUM - SERUM 3.2 mmol/L (3.5-5.1); PROTEIN - SERUM 5.8 g/dL (6.4-8.2); SODIUM 143 mmol/L (136-145); UREA NITROGEN 22 mg/dL (7-18); eGFR NON AFRICAN AMERICAN 77 mL/min (90-120)
[2018-07-03 10:44] VITALS: BP 124/78
[2018-07-03] MEDS ORDERED: LEVAQUIN750 MG PO (12:31)
[2018-07-03] MEDS ORDERED: PREDNISONE20 MG PO (12:32)
== END 2018-07-03 14:23 | disposition home or self-care (01) | DRG 915 ==
LOC: D.ER 11:14 → D.ICU 14:28 → D.EDHOLD 14:28 → D.ICU 14:50
PROVIDERS: Emergency Medicine; Family Medicine; Internal Medicine Pulmonary Disease
PROC: 5A1945Z Respiratory Ventilation, 24-96 Consecutive Hours (ICD-10-PCS; principal; 2018-06-28)
PROC: 0BH17EZ Insertion of Endotracheal Airway into Trachea, Via Natural or Artificial Opening (ICD-10-PCS; 2018-06-28)
DX: T78.3XXA Angioneurotic edema, initial encounter (principal); J96.01 Acute respiratory failure with hypoxia; J69.0 Pneumonitis due to inhalation of food and vomit; J44.1 Chronic obstructive pulmonary disease with (acute) exacerbation; J44.0 Chronic obstructive pulmonary disease with (acute) lower respiratory infection; Z68.41 Body mass index [BMI] 40.0-44.9, adult; T61.781A Other shellfish poisoning, accidental (unintentional), initial encounter; E11.65 Type 2 diabetes mellitus with hyperglycemia; E66.01 Morbid (severe) obesity due to excess calories; I10 Essential (primary) hypertension; I25.10 Atherosclerotic heart disease of native coronary artery without angina pectoris; D64.9 Anemia, unspecified; E87.6 Hypokalemia; D47.3 Essential (hemorrhagic) thrombocythemia; G47.33 Obstructive sleep apnea (adult) (pediatric)

== ENCOUNTER → 2018-07-19 13:07 | Outpatient (CLI) | payer MEDICARE, MEDICAID | END | disposition home or self-care (01) | LOC: D.RT 13:07 | DX: J44.9 Chronic obstructive pulmonary disease, unspecified (principal) ==

== ENCOUNTER 2018-10-06 12:30 | Observation (INO) | payer MEDICARE ==
[~2018-10-06] VITALS: Ht 167.6 cm; Wt 117.3 kg
--- NOTE | ~2018-10-06 | HEMODYNAMI ---
PATIENT:JACINDA DIEGO MEDICAL RECORD: [id number] : 53 [facility] D.2118 [id number] ADMISSION DATE: 10/06/18 Generatedon:10/07/201812:20 Patient name: JACINDA DIEGO Patient #: [id number] SSN: [id number] : 1955 Date of study: 10/07/2018 Page: Of Hemodynamic Procedure Report Patient Data Patient Demographics Procedure consent was obtained First Name: JACINDA Gender: Female Last Name: JOHNATHON : 1955 [facility] Initial: W Age: 63 year(s) Patient #: [id number] Race: Unknown SSN: [id number] Additional ID: [id number] Contact details [address]: [address] [place] [address] State: [place] City: [place] Zip code: [address] Past Medical History Allergies Allergen Reaction Date Comments Reported Other allergy 06/11/2018 CODEINE, KEFLEX Other allergy 10/07/2018 keflex, codeine Admission Admission Data Admission Date: 10/06/2018 Admission Time: 15:05 Room #: D.2118 Procedure Procedure Types Cath Procedure Diagnostic Procedure C [facility] w/Coronaries Procedure Description Procedure Date Procedure Date: 10/07/2018 Procedure Start Time: 12:14 Procedure End Time: 12:18 Procedure Staff Name Function John Schmitz MD Performing Physician Sherif Cali RT Monitor Claudio Mejia RN Nurse Sofia Hoffman RT Scrub Procedure Data Cath Procedure Fluoroscopy Diagnostic fluoroscopy Total fluoroscopy Time: 0.8 time: 0.8 min min Diagnostic fluoroscopy Total fluoroscopy dose: 554 dose: 554 mGy mGy Contrast Material Contrast Material Type Amount (ml) Isovue 300 44 Entry Location Entry Primary Successful Side Size Upsize Upsize Entry Closure Ramon ccessful Closure Location (Fr) 1 (Fr) 2 (Fr) Remarks Device Remarks Radial Right 5 Fr Mechanical artery Compression Estimated blood loss: 5 ml Diagnostic catheters Device Type Used For End Catheter Placement DIAGNOSTIC [place] 110cm 5 Procedure Fr catheter ([id number]) Procedure Complications No complications Procedure Medications Medication Administration Route Dosage 0.9% NaCl I.V. 100 ml/hr Oxygen etCO2 Nasal cannula 2 l/min Heparin Flush Bag added to field 2 bags (1000units/500ml NS) Lidocaine 2% added to field 20 Radial Cocktail added to field 1 syringe (Verapomil 2mg/Nitro 400mcg/Heparin 1500units) Versed I.V. 2 mg Fentanyl I.V. 100 mcg Radial Cocktail I.A. 1 syringe (Verapomil 2mg/Nitro 400mcg/Heparin 1500units) Hemodynamics Rest Heart Rate: 72 (bpm) Snapshots Pre Cath Intra NCS Post Cath Vital Signs Time Heart Resp SPO2 etCO2 NIBP (mmHg) Rhythm Pain Sedation Rate (ipm) (%) (mmHg) Status Level (bpm) 12:11:37 73 16 91 34 162/88(129) NSR 0 (11) 10(A) , No pain 12:16:00 80 18 91 41.6 144/79(107) NSR 0 (11) 10(A) , No pain Medications Time Medication Route Dose Verified Delivered Reason Notes Effectiveness by by 12:06:28 0.9% NaCl I.V. 100 Claudio Claudio Per ml/hr Roberto Mejia physician RN RN 12:06:38 Oxygen etCO2 2 l/min Claudio Claudio for low 02 Nasal Lorigan Lorigan sats cannula RN RN 12:06:47 Heparin Flush added 2 bags Claudio Claudio used for Bag to Lorbrionna Mejia procedure (1000units/500ml field RN RN NS) 12:06:57 Lidocaine 2% added 20ml Claudio Claudio for local to vial Lorigan Lorigan anesthetic field RN RN 12:07:06 Radial Cocktail added 1 Claudio Claudio used for (Verapomil to syringe Lorigan Lorigan procedure 2mg/Nitro field RN RN 400mcg/Heparin 1500units) 12:14:53 Versed I.V. 2 mg Claudio Claudio for sedation Roberto Mejia RN RN 12:15:03 Fentanyl I.V. 100 mcg Claudio Claudio for sedation Roberto Mejia RN RN 12:15:13 Radial Cocktail I.A. 1 Claudio John for (Verapomil syringe Roberto Schmitz MD vasodilation 2mg/Nitro RN 400mcg/Heparin 1500units) Procedure Log Time Note 11:45:35 Claudio Mejia RN sent for patient. Start room use. 11:45:37 Time tracking: Call back (After hours or weekends) 11:45:47 Plan of Care:Hemodynamics will remain stable., Cardiac rhythm will remain stable., Comfort level will be maintained., Respiratory function will remain adequate., Patient/ family verbilizes understanding of procedure., Procedure tolerated without complication., Recovers from procedure without complications.. 11:56:57 Patient received from PCU to CCL 1 Alert and oriented. Tansferred to table in Supine position. 11:56:58 Warm blankets applied, and jessenia hugger turned on for patient comfort. 11:56:59 Correct patient and procedure confirmed by team. 11:57:00 Signed procedure consent form obtained from patient. 11:57:01 ECG and BP/O2 sat monitors applied to patient. 11:57:02 Full Disclosure recording started 12:06:28 0.9% NaCl 100 ml/hr I.V. was administered by Claudio Mejia RN; Per physician; 12:06:38 Oxygen 2 l/min etCO2 Nasal cannula was administered by Claudio Mejia RN; for low 02 sats; 12:06:47 Heparin Flush Bag (1000units/500ml NS) 2 bags added to field was administered by Claudio Mejia RN; used for procedure; 12:06:57 Lidocaine 2% 20ml vial added to field was administered by Claudio Mejia RN; for local anesthetic; 12:07:06 Radial Cocktail (Verapomil 2mg/Nitro 400mcg/Heparin 1500units) 1 syringe added to field was administered by Claudio Mejia RN; used for procedure; 12:10:22 Vital chart was started 12:11:10 Baseline sample Acquired. 12:11:12 Rhythm: sinus rhythm 12:11:23 H&P Date Dictated: 10/06/2018 Within 30 days and on chart.. 12:11:24 Pre-procedure instructions explained to patient. 12:11:24 Pre-op teaching completed and patient verbalized understanding. 12:11:25 Family in patients room. 12:11:26 Patient NPO since Midnight. 12:11:40 Patient allergic to Other allergykeflex, codeine 12:11:41 Is the patient allergic to Iodine/contrast media? No. 12:11:42 Is patient on blood thinner?Yes 12:11:44 ACC The patient was administered the following blood thiners within the last 24 hours: ACCPlavix 12:11:46 Patient diabetic? No. 12:11:47 Previous problem with sedation/anesthesia? No ? 12:11:49 Snore? Yes 12:11:49 Sleep apnea? Yes 12:11:50 Deviated septum? No 12:11:51 Opens mouth fully? Yes 12:11:52 Sticks out tongue? Yes 12:11:55 Airway obstruction? Yes COPD 12:11:57 Dentures? Yes IN TIGHT 12:12:01 Pre procedure: right dorsailis pedis pulse 2+ Normal; easily identifiable; not easily obliterated 12:12:05 Patient pain scale 0/10 ?. 12:12:08 Modified Reuben's test Ulnar < 7 seconds 12:12:16 IV patent on arrival in left forearm with 0.9% NaCl at O. 12:12:18 Lab results completed and on chart. 12:12:20 Right Radial & Right Groin area was prepped with chlora-prep and draped in sterile fashion 12:12:21 Alarms reviewed by R. N. 12:12:22 Sharps counted by scrub and verified by R.N. 12:12:24 Use device set Radial Dx or PCI 12:12:25 ACIST Syringe (40766) opened to sterile field. 12:12:25 Medline Cath Pack ([id number]) opened to sterile field. 12:12:26 Bag Decanter (2002) opened to sterile field. 12:12:26 ACIST Hand Control (10957) opened to sterile field. 12:12:27 ACIST Manifold (84601) opened to sterile field. 12:12:27 Tegaderm 4 x 4 (1626W) opened to sterile field. 12:12:28 MBrace Wrist Support ([id number]) opened to sterile field. 12:12:28 SHEATH 6FR Slender (32-8406) opened to sterile field. 12:12:29 DIAGNOSTIC WIRE .035 260cm J wire (515183) opened to sterile field. 12:12:33 Physician arrived 12:12:34 --------ALL STOP TIME OUT------ 12:12:34 Final Timeout: patient, procedure, and site verified with staff and physician. All members of the team are in agreement. 12:12:36 Right Radial & Right Groin site verified by team. 12:12:39 Fire Safety Assessment: A--An alcohol-based skin anteseptic being used preoperatively., C--Open oxygen or nitrous oxide is being used., D--An ESU, laser, or fiber-optic light is being used. 12:12:41 Physical assessment completed. ASA score P 2 - A patient with mild systemic disease as per John Schmitz MD. 12:12:43 Sedation plan: IV Moderate Sedation Medication:Versed, Fentanyl 12:13:51 Procedure started. 12:14:04 Local anesthetic to right radial artery with Lidocaine 2% by John Schmitz MD.INITIAL ACCESS ONLY 12:14:11 A 5 Fr sheath was inserted into the Right Radial artery 12:14:13 Zero performed for pressure channel P1 12:14:19 Zero performed for pressure channel P1 12:14:24 Zero performed for pressure channel P1 12:14:53 Versed 2 mg I.V. was administered by Claudio Mejia RN; for sedation; 12:14:55 A DIAGNOSTIC [place] 110cm 5 Fr catheter ([id number]) was advanced over the wire and used for Procedure. 12:15:03 Fentanyl 100 mcg I.V. was administered by Claudio Mejia RN; for sedation; 12:15:13 Radial Cocktail (Verapomil 2mg/Nitro 400mcg/Heparin 1500units) 1 syringe I.A. was administered by John Schmitz MD; for vasodilation; 12:15:25 LV gram done using BILLINGSLEY 12:15:28 Injector settings: Ml/sec: 5, Volume: 15, 12:15:29 LV hemodynamics recorded. 12:15:33 EF : 60 % 12:15:39 LCA angiography performed. 12:16:40 RCA angiography performed. 12:16:45 Catheter removed. 12:16:49 TR BAND Standard ([id number]) opened to sterile field. 12:17:39 Sheath removed intact; hemostasis achieved with Mechanical Compression to the Right Radial artery. 12:17:41 Procedure ended.(Physican Out) 12:17:48 Fluoroscopy time 00.80 minutes. 12:17:51 Flurop Dose total: 554 12:17:51 Fluoroscopy dose: 554 mGy 12:17:54 Contrast amount:Isovue 300 44ml. 12:17:56 Sharps counted by scrub and verified by R.N. 12:17:57 TR band inflated with 12cc of air. 12:17:58 Insertion/operative site no bleeding no hematoma. 12:18:01 Post Procedure Pulses reassessed and unchanged 12:18:03 Post-procedure physical assessment completed. ASA score P 2 - A patient with mild systemic disease as per John Schmitz MD. 12:18:05 Post procedure rhythm: unchanged. 12:18:07 Estimated blood loss: 5 ml 12:18:08 Post procedure instruction explained to patient.Patient verbalizes understanding. 12:18:08 Patient needs reinforcement of post procedure teaching. 12:18:39 Procedure and supply charges have been captured, reviewed, submitted and are correct. 12:18:41 Procedure Complication : No complications 12:18:43 Vital chart was stopped 12:18:43 See physician's report for complete and final results. 12:18:44 Report given to PCU. 12:18:46 Patient transfered to PCU with Stretcher. 12:18:47 Procedure ended. 12:18:47 Full Disclosure recording stopped 12:18:50 End room use (Document Last) Device Usage Item Name Manufacture Quantity Catalog Hospital Part Current Minimal Lot# / Number Charge Number Stock Stock Serial# Code ACIST Acist 1 34833 826361 969901 888831 20 Syringe Medical (19123) Systems Inc Medline Medline 1 [id number] 462358 57305 280888 5 Cath Pack ([id number]) Bag Microtek 1 361941 67074 610295 5 Decanter Medical Inc. () ACIST Hand Acist 1 06973 882803 362127 322852 5 Control Medical (03028) Systems Inc ACIST Acist 1 18243 174157 501804 695425 5 Manifold Medical (81840) Systems Inc Tegaderm 4 3M 1 1626W 020564 909021 587797 5 x 4 (1626W) MBrace Advanced 1 140-0250-00 768241 17798 167068 5 Wrist Vascular Support Dynamics ([id number]) SHEATH 6FR Terumo 1 [id number] 227061 793428 941052 5 Slender (95-5710) DIAGNOSTIC St Magdiel 1 346254 591963 897658 201057 30 WIRE .035 260cm J wire (267248) DIAGNOSTIC Terumo 1 40-0260 828696 910828 805805 5 [place] 110cm 5 Fr catheter (871680) TR BAND Terumo 1 [id number] 405547 066286 705705 40 Standard ([id number]) Signature Audit [place] Stage Time Signature Unsigned Intra-Procedure 10/07/2018 Sherif Cali 12:20:05 PM RT(R) Signatures Monitor : Sherif Cali RT Signature : Date : Time : [id number] [place] [address]
[~2018-10-06 12:30] MED LIST changes: +COZAAR100 MG; +LEVAQUIN750 MG PO; +PREDNISONE20 MG PO
[2018-10-06 13:27] LABS: APTT 26.3 SECONDS (22.8-39.4); BASOPHILS 0.5 % (0-2); EOSINOPHILS 1.5 % (0-7); HEMATOCRIT 35.2 % (36.0-48.0); HEMOGLOBIN 11.2 g/dL (12-16); IMMATURE GRANULOCYTES 0.2 % (0-5); LYMPHOCYTES 34.5 % (15-50); MCH 27.4 pg (26.0-34.0); MCHC 31.8 g/dL (31.0-37.0); MCV 86.1 fL (80.0-100.0); MEAN PLATELET VOLUME 11.3 fL (7.4-10.4); MONOCYTES 7.3 % (2-11); PROTIME 12.7 SECONDS (11.6-15.0); RBC 4.09 10x6/uL (4.00-5.40); RDW 16.4 % (11.5-14.5); WBC 6.1 10x3/uL (4.8-10.8)
[2018-10-06 13:28] LABS: PLATELET COUNT 174 10x3/uL (130-400)
[2018-10-06 13:34] VITALS: BP 010/85
[2018-10-06 13:35] LABS: ALBUMIN 3.4 g/dL (3.4-5.0); ALKALINE PHOSPHATASE 126 U/L (46-116); ALT (SGPT) 24 U/L (10-68); BILIRUBIN - TOTAL 0.28 mg/dL (0.2-1.3); CALC OSMOLALITY 283 mosm/kg (275-300); CARBON DIOXIDE 21.8 mmol/L (21.0-32.0); CHLORIDE - SERUM 108 mmol/L (98-107); GLUCOSE 122 mg/dL (74-106); POTASSIUM - SERUM 3.8 mmol/L (3.5-5.1); PROTEIN - SERUM 6.6 g/dL (6.4-8.2); SODIUM 142 mmol/L (136-145); UREA NITROGEN 13 mg/dL (7-18); eGFR NON AFRICAN AMERICAN 59 mL/min (90-120)
--- NOTE | 2018-10-06 13:38 | NUR ---
PT RATES PAIN 7/10 AT THIS TIME. NITROGLYCERIN GIVEN SL.
--- NOTE | 2018-10-06 13:42 | NUR ---
PT REPORTS NO CHANGE IN PAIN AFTER NITRO #1. CONTINUES AT 02/20.
--- NOTE | 2018-10-06 13:46 | NUR ---
PT REPORTS PAIN 5/10 AFTER NITRO #2.
[2018-10-06 13:47] LABS: CREATINE KINASE 39 UL (21-215)
[2018-10-06 13:49] LABS: TROPONIN-I 0.016 ng/mL (0.000-0.060)
--- NOTE | 2018-10-06 13:51 | NUR ---
PT REPORTS PAIN 5/10 AFTER NITRO #3. MOVEMENT INCREASES PAIN ET DEEP INSPIRATION INCREASES PAIN. PT CONTINUES TO C/O PAIN IN BACK.
[2018-10-06 14:09] LABS: CKMB 0.8 U/L (0.0-3.6)
--- NOTE | 2018-10-06 16:38 | NUR ---
RECEIVED TO ROOM VIA WHEELCHAIR. PATIENT IS ON NASAL CANNULA AT 2L. PLACED ON HEART MONITOR SHOWING SR, HR 72. UP TO RESTROOM TO VOID WITHOUT O2 ON. WILL ADMIT.
[2018-10-06 17:07] VITALS: BP 125/55; Ht 167.6 cm; Wt 117.3 kg
[2018-10-06] MEDS ORDERED: POTASSIUM CHLOR8 ME1 PO (17:27)
[2018-10-06] MEDS ORDERED: GABAPENTIN100 MG PO (17:28)
[2018-10-06] MEDS ORDERED: ANORO ELLIPTA1 EACH INH (17:29)
[2018-10-06] MEDS ORDERED: DALIRESP500 MCG PO (17:31)
[2018-10-06] MEDS ORDERED: VOLTAREN100 GM (17:33)
[2018-10-06] MEDS ORDERED: CALCIUM 250+D T1 TAB (17:36)
--- NOTE | 2018-10-06 18:42 | NUR ---
LYING QUIETLY. NO NEEDS VOICED. TELEMERTY SHOWS SR. WILL MONITOR
[2018-10-06 20:10] VITALS: BP 103/53
--- NOTE | 2018-10-06 22:26 | NUR ---
INITIAL ROUNDS COMPLETED AT 1915 HRS. NO DISTRESS NOTED. ASSESSMENT COMPLETED AT 1999 HRS. VSS. O2 2LNC. LUNGS DIMINISHED IN BASES BILAT. SR PER CM HR 67. IV TO L HAND SL. HEATH. BED ALARM ON. PM MEDS GIVEN. PT CURRENTLY RESTING WITH EYES CLOSED. RESP EVEN AND REGULAR. SR UP X2, CALL LIGHT WITHIN REACH AND BED ALARM ON.
[2018-10-06 23:55] VITALS: BP 102/41
--- NOTE | 2018-10-07 00:13 | NUR ---
PT RESTING WITH EYES CLOSED. RESP EVEN AND REGULAR. SR UP X2, CALL LIGHT WITHIN REACH.
--- NOTE | 2018-10-07 02:31 | NUR ---
PT RESTING WITH EYES CLOSED. RESP EVEN AND REGULAR. SR UP X2, CALL LIGHT WITHIN REACH.
[2018-10-07 03:55] VITALS: BP 116/65
--- NOTE | 2018-10-07 05:00 | NUR ---
PT RESTING WITH EYES CLOSED. RESP EVEN AND REGULAR. SR UP X2, CALL LIGHT WITHIN REACH.
--- NOTE | 2018-10-07 05:44 | NUR ---
VSS THROUGHOUT NIGHT. PT STATED ULTRAM HELPED CP. NPO FOR AM LHC. NEEDS MET; WILL CONTINUE TO MONITOR.
--- NOTE | 2018-10-07 07:25 | NUR ---
ROUNDING DONE WITH PATIENT BEING NPO FOR HEART CATH TODAY. ON HEART MONITOR SHOWING SR, HR 69. ON 2L PER NC. OBESE ABDOMEN. BED ALARM SET AND IN USE. LEFT HAND PIV SEEN WITH SALINE LOCK. DENIES NEEDS AT THIS TIME EXCEPT "DRY".
[2018-10-07 08:50] VITALS: BP 102/68
--- NOTE | 2018-10-07 10:52 | NUR ---
STILL NPO FOR HEART CATH
--- NOTE | 2018-10-07 11:58 | NUR ---
TO ROAD COMMISSIONER VIA BED.
[2018-10-07 12:21] VITALS: BP 108/64
--- NOTE | 2018-10-07 12:37 | NUR ---
RETURNS FROM CLAIMS TECHNICIAN WITH TR BAND TO RIGHT WRIST WITH 12 CC AIR PER REPORT. NO BLEEDING SEEN. HOB AT 30 DEGREES. SPOUSE AT BEDSIDE. BED ALARM SET.
--- NOTE | 2018-10-07 14:28 | NUR ---
4 CC OF AIR REMOVED FROM TR BAND. NO BLEEDING SEEN AT THIS TIME.
--- NOTE | 2018-10-07 14:47 | NUR ---
ANOTHER 5 CC OF AIR REMOVED. NO BLEEDING SEEN.
--- NOTE | 2018-10-07 15:06 | NUR ---
FINAL AIR REMOVED FROM TR BAND WITH NO BLEEDING SEEN. CLEAN 2 X 2 AND OPSITE PLACED.
--- NOTE | 2018-10-07 15:56 | NUR ---
VERBAL AND WRITTEN DISCHARGE INSTRUCTIONS GIVEN TO PATIENT. SALINE LOCK REMOVED WITH CATH TIP INTACT. DISCHARGED HOME VIA WHEELCHAIR.
--- NOTE | 2018-10-09 11:18 | OP ---
PATIENT NAME: JACINDA DIEGO MEDICAL RECORD: [id number] :53 LOCATION:D.M2 D.2118 ADMISSION DATE:10/06/18 SURGEON: GREG BROOKE MD DATE OF OPERATION: 10/07/2018 PROCEDURES: 1. Left heart catheterization. 2. Selective coronary angiography. 3. Left ventriculogram. INDICATION: Chest pain compatible with angina, coronary artery disease, previous PTCA and stent, hypertension, hyperlipidemia. PROCEDURE: After informed consent was obtained with detailed description of risks and benefits as well as alternative therapies, the patient elected to proceed with angiogram and heart catheterization. The right radial area was prepped and draped in normal sterile fashion. Right radial artery was cannulated via modified Seldinger technique with placement of 6-[place] sheath. All catheters were exchanged through the sheath. FINDINGS: Left ventriculogram performed in standard 30-degree BILLINGSLEY view reveals good cardiac wall motion throughout all segments. Overall ejection fraction estimated at 60%. SELECTIVE CORONARY ANGIOGRAPHY: 1. Left main is with no significant angiographic disease. 2. Left anterior descending has no significant angiographic disease. 3. Left circumflex has no significant angiographic disease. 4. Right coronary has previously placed stents. These are widely patent with no significant restenosis. No disease else mathew of the RCA or its branches. OVERALL IMPRESSION: Wide patency of the previously placed stents in the RCA with no disease else mathew. Continue medical management of coronary artery disease and cardiac risk factors. TRANSINT:[id number] Voice Confirmation ID: [id number] DOCUMENT ID: [id number] GREG BROOKE MD at 1118 CC: [id number] DICTATION DATE: 10/07/18 1222 EXTENSION SUPERVISOR: 10/07/18 1232 DIS IN 10/07/18 [facility] [address] [id number]
--- NOTE | 2018-10-09 11:18 | HP ---
PATIENT: JACINDA DIEGO MEDICAL RECORD: [id number] ACCOUNT: [id number] LOCATION:[address] : 53 ADMISSION DATE: 10/06/18 PCP: ANJALI COLLINS MD HISTORY AND PHYSICAL EXAMINATION ADMITTING DIAGNOSES: 1. Unstable angina. 2. Coronary artery disease. 3. Previous percutaneous transluminal coronary angioplasty stent, last being May of 2018. 4. Hypertension. 5. Hyperlipidemia. 6. Chronic obstructive pulmonary disease. HISTORY OF PRESENT ILLNESS: Mrs. Diego presents with increasing episodes of chest pain, chest discomfort compatible with angina. Last cardiac intervention was May of 2018. Her EKG is with no acute changes. She continues to have episodes of chest discomfort. REVIEW OF SYSTEMS: The patient reports easy bruising but reports no swollen glands. The patient reports no fever, no night sweats, no significant weight gain, no significant weight loss. No significant exercise tolerance. The patient reports no dry eyes, no irritation, no vision change. Patient reports no difficulty hearing and no ear pain. Patient reports no frequent nose bleeds or nose and sinus problems. Patient reports on arm pain on exertion. No shortness of breath while lying down. No history of heart murmur. Patient reports no cough, no wheezing or coughing up blood. Patient reports no abdominal pain, no vomiting. Normal appetite. No diarrhea and not vomiting blood. No nausea and no constipation. Patient reports no incontinence. No difficulty urinating. No hematuria. No increased frequency. Patient reports no muscle aches. No weakness, no arthralgias, no back pain. No swelling of the extremities. Patient reports no abnormal mole, no jaundice, no rashes. Reports no loss of consciousness. No weakness and no numbness. No seizures, dizziness, or headaches. The patient reports no depression, no sleep disturbance, feeling safe in a relationship and no alcohol abuse. Patient reports on fatigue. Reports no runny nose or sinus pressure. No itching, no hives, and no frequent sneezing. PHYSICAL EXAMINATION: GENERAL APPEARANCE: Well-nourished, well-developed, appears stated age. Level of distress, comfortable. PSYCHIATRIC: Mental status, alert, normal affect. Orientation, oriented to time, place and person. EYES: Lids and conjunctiva, noninjected. No discharge, no pallor. ENT: Lips, teeth, gums, normal dentition. Oropharynx, no cyanosis, no pallor. NECK: Carotid arteries, bilateral normal upstroke, no bruits, no thrills. JUGULAR VEINS: No jugular venous pressure or distention. CERVICAL LYMPH NODES: Nontender, nonenlarged. THYROID: Not enlarged. Nontender. No nodules. LUNGS: Respiratory effort, unlabored. CHEST: Normal curvature. No thoracic deformity. No chest wall tenderness. Percussion, resonant. Auscultation, clear. No wheezes, no rales, no rhonchi. CARDIOVASCULAR: Precordial exam, nondisplaced. No heaves or pericardial thrills. Rate and rhythm, regular. Heart sounds, normal S1, normal S2. No S3, no gallop, no rub. Systolic murmur, not heard. Diastolic murmur, not heard. HISTORY AND PHYSICAL [id number] DIEGO,JACINDA W EXTREMITIES: No cyanosis, no edema. Peripheral pulses, full and equal in all extremities, except as noted. No bruits appreciated. ABDOMEN: Soft, nondistended. Normal aorta. No bruit. Nontender. No masses. Liver, nontender, no hepatomegaly. Spleen, nontender, no splenomegaly. MUSCULOSKELETAL: No joint tenderness. No joint swelling. No erythema. NEUROLOGICAL: Normal gait, normal strength, normal tone. SKIN: Warm and dry. OVERALL IMPRESSION: Chest discomfort compatible with angina. We will proceed with coronary angiography in the a.m. Further care depends upon the findings of the angiography. TRANSINT:[id number] Voice Confirmation ID: [id number] DOCUMENT ID: [id number] GREG BROOKE MD at 1118 CC: [id number] DICTATION DATE: 10/06/18 1448 AUTOMOTIVE PORTER: 10/06/18 1526 DIS IN 10/07/18 [facility] [address] [place] [address]
--- NOTE | 2018-10-09 11:18 | DS ---
PATIENT:JACINDA DIEGO :53 MEDICAL RECORD: [id number] DISCHARGE SUMMARY ADMISSION DATE: 10/06/18 DISCHARGE DATE: 10/07/18 DATE OF DISCHARGE: 10/07/2018 DISCHARGE DIAGNOSES: 1. Angina. 2. Coronary artery disease. 3. Previous percutaneous transluminal coronary angioplasty stent. 4. Hypertension. 5. Hyperlipidemia. HOSPITAL COURSE: Mrs. Diego presents with recurrent anginal symptomatology; however, cardiac catheterization revealed wide patency of the previously placed stents in the RCA, no disease elsewise. She was discharged home with no change in her medications, p.r.n. sublingual nitro. Will follow up with [facility] in 1 month. TRANSINT:[id number] Voice Confirmation ID: [id number] DOCUMENT ID: [id number] GREG BROOKE MD at 1118 CC: [id number] DICTATION DATE: 10/07/18 1220 MEDICAL SALES CONSULTANT: 10/08/18 0045 DIS IN 10/07/18 [address] [place] [address]
--- NOTE | 2018-10-10 09:13 | MORECARE ---
CASE MANAGEMENT DISCHARGE SUMMARY PATIENT: JACINDA DIEGO UNIT: [id number] ADM DATE: 10/06/18 AGE: 63 : 53 SEX: F ROOM/BED: D.8738 AUTHOR: TOLU MCCORMACK PHYSICIAN: REFERRING PHYSICIAN: GREG BROOKE MD DATE OF SERVICE: 10/10/18 Discharge Plan Patient Name: JACINDA DIEGO [facility] [facility] 1955 Planned Disposition: Home Anticipated Discharge Date: 10/07/18 Discharge Date: 10/07/2018 Expected LOS: 1 Initial Reviewer: [email or web address] Initial Review Date: 10/10/2018 Generated: 10/10/18 10:13 am Patient Name: JACINDA DIEGO Page [id number] at 0913 All edits/amendments must be made on the electronic document DICTATION DATE: 10/10/18911 DUCT LAYER SUPERVISOR: DM 10/10/18911 RPT#: [id number] DC DATE:10/07/18 STATUS: DIS IN [facility] [address] [place] [address] END OF REPORT
== END 2018-10-07 15:56 | disposition home or self-care (01) ==
LOC: D.ER 12:30 → D.M2 15:05 → OBSVTIME 15:18 → D.M2 10-07 15:56
PROVIDERS: Family Medicine; ADMIT Internal Medicine Interventional Cardiology
DX: I25.110 Atherosclerotic heart disease of native coronary artery with unstable angina pectoris (principal); I10 Essential (primary) hypertension; E78.5 Hyperlipidemia, unspecified; J44.9 Chronic obstructive pulmonary disease, unspecified

== ENCOUNTER 2018-10-31 16:34 | Emergency (ER) | payer MEDICARE ==
[~2018-10-31] VITALS: Ht 167.6 cm; Wt 120.5 kg
[~2018-10-31 16:34] MED LIST changes: +CALCIUM 250+D T1 TAB; +DALIRESP500 MCG PO; +POTASSIUM CHLOR8 ME1 PO; +VOLTAREN100 GM
[2018-10-31 16:47] VITALS: BP 154/73; Ht 167.6 cm; Wt 120.5 kg
[2018-10-31] MEDS ORDERED: HYDROXYZINE HCL50 MG PO (16:50)
== END 2018-10-31 19:06 | disposition left against medical advice (07) ==
LOC: D.ER 16:34
DX: J02.9 Acute pharyngitis, unspecified (principal)

== ENCOUNTER 2018-12-07 14:15 | Emergency (ER) | payer MEDICARE ==
[~2018-12-07] VITALS: Ht 167.6 cm; Wt 118.2 kg
[2018-12-07 14:26] VITALS: Ht 167.6 cm; Wt 118.2 kg
[2018-12-07 14:53] LABS: BASOPHILS 0.6 % (0-2); EOSINOPHILS 2.7 % (0-7); HEMATOCRIT 34.7 % (36.0-48.0); HEMOGLOBIN 11.1 g/dL (12-16); IMMATURE GRANULOCYTES 0.2 % (0-5); LYMPHOCYTES 43.2 % (15-50); MCH 26.7 pg (26.0-34.0); MCV 83.6 fL (80.0-100.0); MEAN PLATELET VOLUME 11.5 fL (7.4-10.4); MONOCYTES 7.8 % (2-11); NEUTROPHILS 45.5 % (40-80); PLATELET COUNT 184 10x3/uL (130-400); RBC 4.15 10x6/uL (4.00-5.40); RDW 16.6 % (11.5-14.5); WBC 6.3 10x3/uL (4.8-10.8)
[2018-12-07 15:01] LABS: INR 1.02 (0.85-1.17); PROTIME 12.9 SECONDS (11.6-15.0)
[2018-12-07 15:10] LABS: ALBUMIN 3.4 g/dL (3.4-5.0); ALKALINE PHOSPHATASE 125 U/L (46-116); ALT (SGPT) 29 U/L (10-68); BILIRUBIN - TOTAL 0.33 mg/dL (0.2-1.3); CALC OSMOLALITY 282 mosm/kg (275-300); CALCIUM 8.9 mg/dL (8.5-10.1); CARBON DIOXIDE 23.4 mmol/L (21.0-32.0); CHLORIDE - SERUM 107 mmol/L (98-107); CREATININE - SERUM 0.9 mg/dL (0.6-1.3); GLUCOSE 124 mg/dL (74-106); POTASSIUM - SERUM 3.6 mmol/L (3.5-5.1); PROTEIN - SERUM 6.8 g/dL (6.4-8.2); SODIUM 142 mmol/L (136-145); UREA NITROGEN 9 mg/dL (7-18); eGFR NON AFRICAN AMERICAN 67 mL/min (90-120)
[2018-12-07 15:23] LABS: CKMB 1.1 U/L (0.0-3.6); CREATINE KINASE 42 UL (21-215); TROPONIN-I < 0.017 ng/mL (0.000-0.060)
[2018-12-07] MEDS ORDERED: ISOSORBIDE MONO30 M1 PO (17:19)
[2018-12-07 18:01] VITALS: BP 129/59
== END 2018-12-07 18:01 | disposition home or self-care (01) ==
LOC: D.ER 14:15
PROVIDERS: Emergency Medicine
DX: R07.9 Chest pain, unspecified (principal); I25.10 Atherosclerotic heart disease of native coronary artery without angina pectoris; I10 Essential (primary) hypertension

== ENCOUNTER → 2019-02-12 14:18 | Outpatient (CLI) | payer MEDICARE ==
[2018-12-07 14:26] VITALS: BMI 42.0
[~2019-02-12 14:18] MED LIST changes: +ISOSORBIDE MONO30 M1 PO
[2019-02-14 08:10] LABS: IMMUNOGLOBULIN A 231 mg/dL (87-352); IMMUNOGLOBULIN M 83 mg/dL (26-217)
[2019-02-15 06:06] LABS: IGG SUBCLASS 1 370 mg/dL (248-810); IGG SUBCLASS 2 110 mg/dL (130-555); IGG SUBCLASS 3 52 mg/dL (15-102); IGG SUBCLASS 4 22 mg/dL (2-96)
[2019-02-17 20:06] LABS: IMMUNOGLOBULIN E 5 IU/mL (6-495)
== END | disposition home or self-care (01) ==
LOC: D.RT 14:00
PROVIDERS: ATTEND Internal Medicine Pulmonary Disease
DX: J44.9 Chronic obstructive pulmonary disease, unspecified (principal); R04.2 Hemoptysis; R07.9 Chest pain, unspecified; Z87.01 Personal history of pneumonia (recurrent); J30.1 Allergic rhinitis due to pollen

== ENCOUNTER 2019-04-02 11:00 | Outpatient (CLI) | payer MEDICARE ==
[2018-12-07 14:26] VITALS: BMI 42.0
== END 2019-04-02 11:30 | disposition home or self-care (01) ==
LOC: D.MAMMO 11:00
PROVIDERS: ATTEND Emergency Medicine
DX: Z12.31 Encounter for screening mammogram for malignant neoplasm of breast (principal)

== ENCOUNTER 2019-05-31 14:34 | Emergency (ER) | payer MEDICARE ==
[~2019-05-31] VITALS: Ht 167.6 cm; Wt 122.7 kg
[2019-05-31 14:44] VITALS: Ht 167.6 cm; Wt 122.7 kg
[2019-05-31 15:24] LABS: BASOPHILS 0.3 % (0-2); EOSINOPHILS 1.4 % (0-7); HEMATOCRIT 44.7 % (36.0-48.0); HEMOGLOBIN 14.8 g/dL (12-16); IMMATURE GRANULOCYTES 0.2 % (0-5); MCHC 33.1 g/dL (31.0-37.0); MCV 96.8 fL (80.0-100.0); MEAN PLATELET VOLUME 11.6 fL (7.4-10.4); NEUTROPHILS 54.1 % (40-80); PLATELET COUNT 143 10x3/uL (130-400); RBC 4.62 10x6/uL (4.00-5.40); RDW 15.2 % (11.5-14.5); WBC 6.6 10x3/uL (4.8-10.8)
[2019-05-31 15:25] LABS: APPEARANCE CLEAR (CLEAR); BILIRUBIN NEGATIVE (NEGATIVE); COLOR YELLOW (YELLOW); GLUCOSE NEGATIVE (NEGATIVE); KETONE NEGATIVE (NEGATIVE); NITRITE NEGATIVE (NEGATIVE); PROTEIN NEGATIVE (NEGATIVE); UROBILINOGEN NORMAL (NORMAL)
[2019-05-31 15:35] LABS: BACTERIA FEW /hpf (NEGATIVE); WHITE CELLS - URINE 0-5 /hpf (NEGATIVE)
[2019-05-31 15:36] LABS: CALC OSMOLALITY 281 mosm/kg (275-300); CARBON DIOXIDE 25.2 mmol/L (21.0-32.0); CHLORIDE - SERUM 108 mmol/L (98-107); CREATININE - SERUM 1.1 mg/dL (0.6-1.3); GLUCOSE 120 mg/dL (74-106); POTASSIUM - SERUM 3.9 mmol/L (3.5-5.1); SODIUM 141 mmol/L (136-145); UREA NITROGEN 12 mg/dL (7-18); eGFR NON AFRICAN AMERICAN 53 mL/min (90-120)
[2019-05-31 15:50] LABS: ALBUMIN 3.9 g/dL (3.4-5.0); ALKALINE PHOSPHATASE 165 U/L (46-116); ALT (SGPT) 53 U/L (10-68); AMYLASE - SERUM 23 U/L (25-115); CKMB 1.7 U/L (0.0-3.6); CREATINE KINASE 57 UL (21-215); LIPASE 153 U/L (73-393); PROTEIN - SERUM 6.8 g/dL (6.4-8.2); TROPONIN-I < 0.017 ng/mL (0.000-0.060)
[2019-05-31] MEDS ORDERED: MACROBID100 MG PO (17:08)
[2019-05-31] MEDS ORDERED: PROTONIX20 MG PO (17:08)
[2019-05-31 17:30] VITALS: BP 138/86
== END 2019-05-31 17:32 | disposition home or self-care (01) ==
LOC: D.ER 14:34
PROVIDERS: Family Medicine
DX: R10.9 Unspecified abdominal pain (principal); N39.0 Urinary tract infection, site not specified

== ENCOUNTER 2019-09-11 16:16 | Emergency (ER) | payer MEDICARE ==
[~2019-09-11] VITALS: Ht 167.6 cm; Wt 118.2 kg
[~2019-09-11 16:16] MED LIST changes: +MACROBID100 MG PO; +PROTONIX20 MG PO
[2019-09-11 16:28] VITALS: Ht 167.6 cm; Wt 118.2 kg
[2019-09-11 16:54] LABS: BASOPHILS 0.3 % (0-2); EOSINOPHILS 1.9 % (0-7); HEMATOCRIT 43.9 % (36.0-48.0); HEMOGLOBIN 14.9 g/dL (12-16); IMMATURE GRANULOCYTES 0.1 % (0-5); LYMPHOCYTES 33.4 % (15-50); MCH 32.7 pg (26.0-34.0); MCHC 33.9 g/dL (31.0-37.0); MCV 96.5 fL (80.0-100.0); MEAN PLATELET VOLUME 11.3 fL (7.4-10.4); MONOCYTES 7.1 % (2-11); NEUTROPHILS 57.2 % (40-80); PLATELET COUNT 126 10x3/uL (130-400); RBC 4.55 10x6/uL (4.00-5.40); RDW 14.1 % (11.5-14.5); WBC 6.8 10x3/uL (4.8-10.8)
[2019-09-11 17:15] LABS: APTT 27.8 SECONDS (22.8-39.4); INR 0.97 (0.85-1.17); PROTIME 12.8 SECONDS (11.6-15.0)
[2019-09-11 17:19] LABS: CALC OSMOLALITY 280 mosm/kg (275-300); CALCIUM 8.7 mg/dL (8.5-10.1); CARBON DIOXIDE 25.9 mmol/L (21.0-32.0); CHLORIDE - SERUM 105 mmol/L (98-107); CREATININE - SERUM 0.7 mg/dL (0.6-1.3); GLUCOSE 121 mg/dL (74-106); POTASSIUM - SERUM 4.1 mmol/L (3.5-5.1); SODIUM 141 mmol/L (136-145); UREA NITROGEN 10 mg/dL (7-18); eGFR NON AFRICAN AMERICAN 89 mL/min (90-120)
[2019-09-11 17:35] LABS: ALBUMIN 3.4 g/dL (3.4-5.0); ALKALINE PHOSPHATASE 154 U/L (30-120); ALT (SGPT) 98 U/L (10-68); BILIRUBIN - TOTAL 0.39 mg/dL (0.2-1.3); CKMB 1.3 U/L (0.0-3.6); CREATINE KINASE 49 UL (21-215); PROTEIN - SERUM 6.8 g/dL (6.4-8.2)
[2019-09-11 17:47] LABS: TROPONIN-I < 0.017 ng/mL (0.000-0.060)
[2019-09-11] MEDS ORDERED: PEPCID40 MG PO (19:56)
[2019-09-11 20:11] VITALS: BP 139/76
== END 2019-09-11 20:11 | disposition home or self-care (01) ==
LOC: D.ER 16:16
PROVIDERS: Family Medicine
DX: K21.9 Gastro-esophageal reflux disease without esophagitis (principal); K44.9 Diaphragmatic hernia without obstruction or gangrene; R06.02 Shortness of breath; R03.0 Elevated blood-pressure reading, without diagnosis of hypertension; I10 Essential (primary) hypertension; G62.9 Polyneuropathy, unspecified; Z72.0 Tobacco use

== ENCOUNTER 2020-05-26 08:00 | Outpatient (CLI) | payer MEDICARE ==
[2019-09-11 16:28] VITALS: BMI 42.0
[~2020-05-26 08:00] MED LIST changes: +PEPCID40 MG PO
== END 2020-05-26 23:59 | disposition home or self-care (01) ==
LOC: D.HCCARDIO 08:00
PROVIDERS: ATTEND Internal Medicine Cardiovascular Disease
DX: I25.10 Atherosclerotic heart disease of native coronary artery without angina pectoris (principal)

== ENCOUNTER 2020-12-05 14:38 | Inpatient (IN) | payer MEDICARE ==
[~2020-12-05] VITALS: Ht 167.6 cm; Wt 120.7 kg
--- NOTE | ~2020-12-05 | EEG ---
PATIENT:JACINDA DIEGO MEDICAL RECORD: [id number] DATE OF : 53 LOCATION:D.220 D.MS ADMISSION DATE: 12/05/20 REFERRING PHYSICIAN: INTERPRETING PHYSICIAN: GUANAKITO GALLEGO MD DATE OF SERVICE: 12/07/2020 ROOM NUMBER: [id number] EEG ORDERED BY: Dr. Gallego. CASE HISTORY: A 65-year-old female with apparent recurrent seizures with past history of seizure 20 years ago and report of a series of seizures observed by her with the patient demonstrating tonic stiffness of the limbs and rhythmic shaking of limbs and then postictal phase of confusion and lethargy. The patient was started on Keppra. PROCEDURE: EEG done as a routine bedside portable recording using the standard 10-20 international electrode system. A 16-channel was used with 17th as EKG. Photic stimulation done as activation procedures. DESCRIPTION OF PROCEDURE: EEG opens with the patient awake, moving about and crying initially with a record complicated by significant movement. Record displays a fairly well-organized posterior dominant rhythm of 10-11 Hz. There is significant portions of the record obscured by movement artifact. Noted later in the record, his rapid onset of drowsiness transitioning to stage I sleep with snoring and subsequent rapid arousals. Occasionally, bilateral independent single theta slow waves as well as independent single sharp waves were seen in the record. No epileptiform change such as spike, polyspike or spike and wave was observed. Photic stimulation did not yield a significant driving response. There was no photomyogenic or photoparoxysmal response seen. 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 IMPRESSION: Mildly abnormal EEG with nonspecific changes that could suggest mild cortical dysfunction as well as rapid onset of sleep with rapid arousals, which could suggest a sleep disorder. There was no evidence of an active seizure focus or evidence of underlying seizure disorder in this recording. TRANSINT:[id number] Voice Confirmation ID: [id number] DOCUMENT ID: [id number] GUANAKITO GALLEGO MD CC: [id number] DICTATION DATE: 12/07/201728 POSTAGE MACHINE OPERATOR: 12/08/20 0843 DIS IN 12/07/20 [facility] [address] [place] [address]
--- NOTE | ~2020-12-05 | HEMODYNAMI ---
PATIENT:JACINDA DIEGO MEDICAL RECORD: [id number] : 53 LOCATION:D.MS [place] ADMISSION DATE: 12/05/20 Generatedon:18:35 Patient name: JACINDA DIEGO Patient #: [id number] SSN: [id number] : 1955 Date of study: 12/07/2020 Page: Of Hemodynamic Procedure Report Patient Data Patient Demographics Procedure consent was obtained First Name: JACINDA Gender: Female Last Name: JOHNATHON : 1955 [facility] Initial: W Age: 65 year(s) Patient #: [id number] Race: SSN: [id number] Additional ID: [id number] Contact details [address]: [address] [place] [address] State: [place] City: [place] Zip code: [address] Past Medical History Allergies Allergen Reaction Date Comments Reported Other allergy 06/11/2018 CODEINE, KEFLEX Other allergy 10/07/2018 keflex, codeine Other allergy 12/07/2020 codeine, keflex Admission Admission Data Admission Date: 12/05/2020 Admission Time: 16:38 Arrival Date: 12/07/2020 Arrival Time: 0:00 Admit Source: Other Insurance Payor: Medicare Room #: [id number] [facility] #: [id number] Height (in.): 66 BSA: 2.26 (m2) Height (cm.): 167.64 BMI: 43.02 (kg/m2) Weight (lbs.): 266.54 Weight (kg.): 120.9 Lab Results Lab Result Date: 12/07/2020 Lab Result Time: 0:00 Biochemistry Name Units Result Min Max BUN mg/dl 11 --(-*--)-- 7 18 CK-MB ng/ml 0.9 --(*---)-- 0 3.6 Creatinine mg/dl 0.8 --(-*--)-- 0.6 1.3 eGFR ml/min 76.36361 *-(----)-- 90 120 NONAFRICAN Troponin I ng/ml 0.017 --(-*--)-- 0 0.06 CBC Name Units Result Min Max Hematocrit % 32.3 *-(----)-- 42 54 Hemoglobin g/dl 9.6 *-(----)-- 13.5 17.5 Procedure Procedure Types Cath Procedure Diagnostic Procedure C [facility] w/Coronaries Sedation Charges Moderate Sedation 25-39 minutes Procedure Description Procedure Date Procedure Date: 12/07/2020 Procedure Start Time: 8:18 Procedure End Time: 8:34 Procedure Staff Name Function Jeff Villa MD Performing Physician Ruben Coles RN Nurse Tonie Garza RT Scrub Kylee Hung RT Monitor Indication Chest pain Procedure Data Cath Procedure Fluoroscopy Diagnostic fluoroscopy Total fluoroscopy Time: 2.4 time: 2.4 min min Diagnostic fluoroscopy Total fluoroscopy dose: 628 dose: 628 mGy mGy Contrast Material Contrast Material Type Amount (ml) Isovue 370 84 Entry Location Entry Primary Successful Side Size Upsize Upsize Entry Closure Ramon ccessful Closure Location (Fr) 1 (Fr) 2 (Fr) Remarks Device Remarks Radial Right 6 Fr Mechanical artery Short Compression Estimated blood loss: 5 ml Diagnostic catheters Device Type Used For End Catheter Placement DIAGNOSTIC New Riegel 110cm 5 Procedure Fr catheter ([id number]) DIAGNOSTIC Pigtail 5Fr Procedure catheter ([id number]) Procedure Complications No complications Procedure Medications Medication Administration Route Dosage Oxygen etCO2 Nasal cannula 2 l/min Lidocaine 2% added to field 20 Heparin Flush Bag added to field 2 bags (1000units/500ml NS) 0.9% NaCl I.V. 100 ml/hr Versed I.V. 2 mg Fentanyl I.V. 100 mcg Radial Cocktail I.A. 1 syringe (Verapamil 2mg/Nitro 400mcg/Heparin 1500units) Versed I.V. 1 mg Fentanyl I.V. 50 mcg Fentanyl I.V. 50 mcg Versed I.V. 1 mg Hemodynamics Rest BSA: 2.26 (m2) HGB: 9.6 (g/dl) O2 Consumption: Estimated: 217.03 (ml/min) O2 Con sumption indexed: Estimated:96.03 (ml/min/m) Heart Rate: 78 (bpm) Pressure Samples Time Site Value (mmHg) Purpose Heart Use Rate(bpm) 8:26 LV 156/29,18 Snapshot 164 8:26 LV 174/99,107 Snapshot 107 8:30 LV 112/2,26 Snapshot 72 Gradients Valve Time Site Site Mean SEP/DFP Peak To Heart Use 1 2 (mmHg) (sec/min) Peak Rate (mmHg) (bpm) Aortic 8:30 LV AO 58 Snapshots Pre Cath Intra NCS Post Cath Vital Signs Time Heart Resp SPO2 etCO2 NIBP (mmHg) Rhythm Pain Sedation Rate (ipm) (%) (mmHg) Status Level (bpm) 8:04:53 86 14 98 21.7 134/76(117) NSR 0 (11) 10(A) , No pain 8:09:33 93 15 94 37.4 151/86(125) NSR 0 (11) 10(A) , No pain 8:14:20 96 19 94 0 154/93(116) NSR 0 (11) 10(A) , No pain 8:19:11 99 15 93 25.4 162/102(138) NSR 0 (11) 10(A) , No pain 8:24:06 103 16 92 43.4 154/95(128) NSR 0 (11) 10(A) , No pain 8:28:51 114 17 93 28.5 164/102(144) NSR 0 (11) 10(A) , No pain 8:33:50 110 18 92 34.4 177/95(124) NSR 0 (11) 10(A) , No pain Medications Time Medication Route Dose Verified Delivered Reason Notes Ef fectiveness by by 8:03:26 Oxygen etCO2 2 l/min Jeff Buffie used for Nasal Allen Coles RN procedure cannula 8:04:32 Lidocaine 2% added 20ml Jeff Jeff for local to vial Allen Villa MD anesthetic field 8:04:38 Heparin Flush added 2 bags Jeff Jeff used for Bag to Allen Villa MD procedure (1000units/500ml field NS) 8:04:46 0.9% NaCl I.V. 100 Jeff Buffie Per ml/hr Allen Coles RN physician 8:13:16 Versed I.V. 2 mg Jeff Buffie for Allen Coles RN sedation 8:13:21 Fentanyl I.V. 100 mcg Jeff Buffie for Allen Coles RN sedation 8:17:28 Versed I.V. 1 mg Jeff Buffie for Allen Coles RN sedation 8:17:32 Fentanyl I.V. 50 mcg Jeff Buffie for Allen Coles RN sedation 8:25:33 Fentanyl I.V. 50 mcg Jeff Buffie for Allen Coles RN sedation 8:25:37 Versed I.V. 1 mg Jeff Buffie for Allen Coles RN sedation 8:26:46 Radial Cocktail I.A. 1 Jeff Jeff used for (Verapamil syringe Allen Villa MD procedure 2mg/Nitro 400mcg/Heparin 1500units) Procedure Log Time Note 7:32:18 Informed consent obtained and on chart 7:32:29 Diagnostic Cath Status : Urgent 7:33:42 Lab Result : CK-MB 0.9 ng/ml 7:33:42 Lab Result : Creatinine 0.8 mg/dl 7:33:42 Lab Result : BUN 11 mg/dl 7:33:42 Lab Result : eGFR NONAFRICAN 76.98216 ml/min 7:33:42 Lab Result : Hemoglobin 9.6 g/dl 7:33:42 Lab Result : Troponin T 0.017 ng/ml 7:33:42 Lab Result : Hematocrit 32.3 % 7:33:56 Arrival Date: 12/07/2020 12:00:00 AM 7:33:56 Admit Source: Other 7:34:13 Insurance Payor : Medicare 7:34:23 Patient Height : 66 inches 7:34:28 Patient Weight : 266.54 lbs 7:36:42 ACC Patient presents with Unstable Angina CCS Anginal Class 2--Slight limitation of ordinary activity. 7:36:47 Procedure Status Urgent Heart Cath (IP). 7:37:08 Tonie Garza RT(R) sent for patient. Start room use. 7:37:24 Indication : Chest pain 7:37:27 Time tracking: Regular hours (M-F 7:00 - 5:00) 7:37:31 Plan of Care:Hemodynamics will remain stable., Cardiac rhythm will remain stable., Comfort level will be maintained., Respiratory function will remain adequate., Patient/ family verbilizes understanding of procedure., Procedure tolerated without complication., Recovers from procedure without complications.. 7:37:39 H&P Date Dictated: 12/05/2020 Within 30 days and on chart.. 7:37:43 Family unavailable. 7:37:45 Patient NPO since Midnight. 7:38:04 Patient allergic to Other allergycodeine, keflex 7:38:14 Lab results completed and on chart. 7:38:17 Stress Test: no; N/A ? 7:38:19 Alarms reviewed by R. N. 7:38:19 Sharps counted by scrub and verified by R.N. 7:40:20 Risk of Mortality: 0.3 7:40:24 Risk of blood transfusion: 19.3 7:40:27 Risk of BE: 3.6 7:43:35 Pre-procedure instructions explained to patient. 7:43:36 Pre-op teaching completed and patient verbalized understanding. 7:56:43 Patient received from Med/Surg to CCL 1 Alert and oriented. Tansferred to table in Supine position. 7:56:45 Warm blankets applied, and jessenia hugger turned on for patient comfort. 7:56:45 Correct patient and procedure confirmed by team. 7:56:46 ECG and BP/O2 sat monitors applied to patient. 7:56:48 Full Disclosure recording started 8:03:16 Vital chart was started 8:03:26 Oxygen 2 l/min etCO2 Nasal cannula was administered by Ruben Coles RN; used for procedure; Verbal order read back and verified. 8:04:05 Baseline sample Acquired. 8:04:10 Rhythm: sinus tachycardia 8:04:22 Is the patient allergic to Iodine/contrast media? No. 8:04:23 Was the patient premedicated? Yes 8:04:27 Is patient on blood thinner?No 8:04:32 Lidocaine 2% 20ml vial added to field was administered by Jeff Villa MD; for local anesthetic; Verbal order read back and verified. 8:04:38 Heparin Flush Bag (1000units/500ml NS) 2 bags added to field was administered by Jeff Villa MD; used for procedure; Verbal order read back and verified. 8:04:42 Patient diabetic? Yes. 8:04:43 If diabetic: On Metformin? Yes 8:04:46 0.9% NaCl 100 ml/hr I.V. was administered by Buffie Coles RN; Per physician; Verbal order read back and verified. 8:04:47 Patient not . Patient is over age 55. 8:04:47 ----Pre-sedation anethsthesia assessment.---- 8:04:52 Previous problem with sedation/anesthesia? No ? 8:04:53 Snore? Yes 8:04:54 Sleep apnea? Yes 8:04:55 Deviated septum? No 8:04:56 Opens mouth fully? Yes 8:04:57 Sticks out tongue? Yes 8:05:02 Airway obstruction? Yes COPD 8:05:07 Dentures? Yes IN TIGHT 8:05:14 Modified Reuben's test Ulnar < 7 seconds 8:05:17 Patient pain scale 0/10 ?. 8:05:21 IV patent on arrival in left antecubital with 0.9% NaCl at [facility]. 8:05:26 Right Radial & Right Groin area was prepped with chlora-prep and draped in sterile fashion 8:05:31 Use device set Radial Dx or PCI 8:05:45 ACIST Syringe (22643) opened to sterile field. 8:05:45 Medline Cath Pack ([id number]) opened to sterile field. 8:05:46 Bag Decanter (2002S) opened to sterile field. 8:05:48 ACIST Hand Control (35254) opened to sterile field. 8:05:49 ACIST Manifold (84021) opened to sterile field. 8:05:50 MBrace Wrist Support ([id number]) opened to sterile field. 8:05:50 NEEDLE Cook 21G 4cm Radial ([id number]) opened to sterile field. 8:05:52 EMERALD Guide Wire (664-326) opened to sterile field. 8:05:53 SHEATH 6FR RAIN (0499714) opened to sterile field. 8:12:40 --------ALL STOP TIME OUT------ 8:12:41 Final Timeout: patient, procedure, and site verified with staff and physician. All members of the team are in agreement. 8:12:44 Right Radial & Right Groin site verified by team. 8:12:48 Fire Safety Assessment: A--An alcohol-based skin anteseptic being used preoperatively., C--Open oxygen or nitrous oxide is being used., D--An ESU, laser, or fiber-optic light is being used. 8:12:51 Physical assessment completed. ASA score P 2 - A patient with mild systemic disease as per Jeff Villa MD. 8:12:54 2) 60-89 Mildly reduced kidney function, and other findings (as for stage 1) point to kidney disease. 8:12:56 Maximum allowable contrast dose (3.7 X eGFR X 0.75)216 ml. 8:13:00 Sedation plan: IV Moderate Sedation Medication:Versed, Fentanyl 8:13:16 Versed 2 mg I.V. was administered by Ruben Coles RN; for sedation; Verbal order read back and verified. 8:13:21 Fentanyl 100 mcg I.V. was administered by Ruben Coles RN; for sedation; Verbal order read back and verified. 8:17:28 Versed 1 mg I.V. was administered by Ruben Coles RN; for sedation; Verbal order read back and verified. 8:17:32 Fentanyl 50 mcg I.V. was administered by Ruben Coles RN; for sedation; Verbal order read back and verified. 8:18:11 Procedure started. 8:18:18 Local anesthetic to right radial artery with Lidocaine 2% by Jeff Villa MD.INITIAL ACCESS ONLY 8:24:12 A 6 Fr Short sheath was inserted into the Right Radial artery 8:25:30 A DIAGNOSTIC [place]iegel 110cm 5 Fr catheter ([id number]) was advanced over the wire and used for Procedure. 8:25:33 Fentanyl 50 mcg I.V. was administered by Ruben Coles RN; for sedation; Verbal order read back and verified. 8:25:36 IV Extension Set opened to sterile field. 8:25:37 Versed 1 mg I.V. was administered by Ruben Coles RN; for sedation; Verbal order read back and verified. 8:26:46 Radial Cocktail (Verapamil 2mg/Nitro 400mcg/Heparin 1500units) 1 syringe I.A. was administered by Jeff Villa MD; used for procedure; Verbal order read back and verified. 8:26:46 RCA angiography performed. 8:26:48 Injector settings: Ml/sec: 3, Volume: 6, 8:27:34 LCA angiography performed. 8:27:36 Injector settings: Ml/sec: 3, Volume: 6, 8:28:32 Catheter exchanged over wire. 8:29:30 A DIAGNOSTIC Pigtail 5Fr catheter ([id number]) was advanced over the wire and used for Procedure. 8:30:06 LV gram done using [place]INGS[place] 8:30:11 LV hemodynamics recorded. 8:30:42 Injector settings: Ml/sec: 10, Volume: 20, 8:30:45 EF : 50 % 8:30:49 Catheter removed. 8:30:58 ZEPHYR REGULAR TR BAND (441197) opened to sterile field. 8:31:12 Sheath removed intact; hemostasis achieved with Mechanical Compression to the Right Radial artery. 8:31:14 Procedure ended.(Physican Out) 8:31:23 Fluoroscopy time 02.40 minutes. 8:31:27 Flurop Dose total: 628 8:31: Fluoroscopy dose: 628 mGy 8:31:33 Dose Area Product 22246 mGy/cm. 8:31:49 Maximum allowable dose exceeded? No. 8:31:51 Sharps counted by scrub and verified by R.N. 8:31:55 Post Procedure Pulses reassessed and unchanged 8:31:58 Post procedure: right dorsailis pedis pulse 1+ Palpable, but thready & weak; easily obliterated. 8:32:01 Post-procedure physical assessment completed. ASA score P 2 - A patient with mild systemic disease as per Jeff Villa MD. 8:32:04 Post procedure rhythm: unchanged. 8:32:07 Estimated blood loss: 5 ml 8:32:08 Post procedure instruction explained to patient.Patient verbalizes understanding. 8:32:09 Patient needs reinforcement of post procedure teaching. 8:32:39 Procedure type changed to Cath procedure, Diagnostic procedure, LHC, [facility] w/Coronaries, Sedation Charges, Moderate Sedation 25-39 minutes 8:33:02 Procedure and supply charges have been captured, reviewed, submitted and are correct. 8:33:06 Procedure Complication : No complications 8:33:09 [facility] Findings: mild to moderate CAD (<70%) 8:33:13 Operative report dictated upon procedure completion. 8:33:13 See physician's report for complete and final results. 8:33:16 Report given to Med/Surg. 8:33:24 Patient transfered to Med/Surg with Bed. 8:33:29 [place] band inflated with 12cc of air. 8:33:42 Contrast amount:Isovue 370 84ml. 8:34:24 PT NEEDS TIVA FROM THIS POINT FORWARD TO REACTIONS AND MOVEMENT.. 8:34:35 Procedure ended. 8:34:35 Full Disclosure recording stopped 8:34:43 End room use (Document Last) 8:34:58 End room use (Document Last) 8:35:12 End room use (Document Last) 8:35:29 Vital chart was stopped Device Usage Item Name Manufacture Quantity Catalog Hospital Part Current Minima l Lot# / Number Charge Number Stock Stock Serial# Code ACIST Acist 1 51141 545169 [id number] [id number] 20 Syringe Medical (12504) Systems Inc Medline Medline 1 [id number] 44644 319837 5 Cath Pack ([id number]) Bag Microtek 1 950584 98993 569913 5 Decanter Medical Inc. () ACIST Hand Acist 1 87194 337511 327656 395639 5 Control Medical (56829) Systems Inc ACIST Acist 1 12777 303435 991935 713837 5 Manifold Medical (18537) Systems Inc MBrace Advanced 1 140-0250-00 995171 13390 575463 5 Wrist Vascular Support Dynamics ([id number]) NEEDLE Cook Cook Medical 1 [id number] 211627 860353 052233 5 21G 4cm Radial (H91760) EMERALD Cardinal 1 502-455 385178 585073 791122 5 Guide Wire Health (502455) SHEATH 6FR Cardinal 1 2732021 227282 9428285 592644 5 [facility] (2675061) DIAGNOSTIC Terumo 1 40-5013 722845 703459 181125 5 [place] Riegel 110cm 5 Fr catheter (302503) IV Hospira 1 07612-34 322160 06546 475204 5 Extension Set DIAGNOSTIC Cardinal 1 [id number] 674437 391378 362781 5 Pigtail 5Fr Health catheter (706633N) ZEPHYR Cardinal 1 402580 784147 8791220 721856 5 REGULAR TR Health BAND (159244) Signature Audit Andrews Stage Time Signature Unsigned Intra-Procedure 12/07/2020 Kylee Hung 8:34:58 AM RT(R) Intra-Procedure 12/07/2020 Buffie Coles RN 8:35:12 AM Intra-Procedure 12/07/2020 Jeff Villa MD 8:35:27 AM [facility] [address] [place] [address]
[~2020-12-05 14:38] MED LIST changes: +CALCIUM 250 MG PO; -CALCIUM 250+D T1 TAB; +CARAFATE1 G PO; +ISOSORBIDE MONO60 M1 PO; +METFORM PO; +MIRAPEX1 MG PO; +NITROQUICK0.4 MG SL; +NORVASC10 MG PO; +VIT PO; +[UNRECOGNIZED DRUG - OTHER] PO
--- NOTE | 2020-12-05 14:55 | NUR ---
PATIENT TAKEN TO CT AT THIS TIME.
[2020-12-05 15:43] LABS: BASOPHILS 0.5 % (0-2); HEMATOCRIT 34.5 % (36.0-48.0); HEMOGLOBIN 10.7 g/dL (12-16); IMMATURE GRANULOCYTES 0.3 % (0-5); LYMPHOCYTE ABS# 2.25 10x3/uL (1.18-3.74); LYMPHOCYTES 35.4 % (15-50); MCH 26.6 pg (26.0-34.0); MCV 85.8 fL (80.0-100.0); MEAN PLATELET VOLUME 11.5 fL (7.4-10.4); MONOCYTES 7.4 % (2-11); NEUTROPHIL ABS# 3.45 10x3/uL (1.56-6.13); NEUTROPHILS 54.4 % (40-80); PLATELET COUNT 169 10x3/uL (130-400); RBC 4.02 10x6/uL (4.00-5.40); RDW 15.8 % (11.5-14.5); WBC 6.4 10x3/uL (4.8-10.8)
[2020-12-05 15:53] LABS: CALC OSMOLALITY 280 mosm/kg (275-300); CALCIUM 8.7 mg/dL (8.5-10.1); CARBON DIOXIDE 27.7 mmol/L (21.0-32.0); CHLORIDE - SERUM 103 mmol/L (98-107); CREATININE - SERUM 0.7 mg/dL (0.6-1.3); GLUCOSE 133 mg/dL (74-106); POTASSIUM - SERUM 3.4 mmol/L (3.5-5.1); SODIUM 140 mmol/L (136-145); UREA NITROGEN 12 mg/dL (7-18); eGFR NON AFRICAN AMERICAN 89 mL/min (90-120)
[2020-12-05 16:10] LABS: ALBUMIN 3.3 g/dL (3.4-5.0); ALKALINE PHOSPHATASE 84 U/L (30-120); ALT (SGPT) 36 U/L (10-68); BILIRUBIN - TOTAL 0.35 mg/dL (0.2-1.3); CKMB 0.8 U/L (0.0-3.6); CREATINE KINASE 63 UL (21-215); MAGNESIUM - SERUM 2.2 mg/dL (1.8-2.4); PROTEIN - SERUM 6.6 g/dL (6.4-8.2); TROPONIN-I < 0.017 ng/mL (0.000-0.060)
--- NOTE | 2020-12-05 16:28 | NUR ---
SCHEDULED MEDS ADMIN. NURSE ROUND PERFORMED. NAD. PLEASANT, ALERT AND ORIENTED, AT BEDSIDE. WATCHING TV AND TALKING.
--- NOTE | 2020-12-05 16:36 | NUR ---
DR GONZALEZ AT BEDSIDE
--- NOTE | 2020-12-05 17:22 | NUR ---
REPORT GIVEN TO JACK DOBBS ON MED SURG.
--- NOTE | 2020-12-05 18:31 | NUR ---
PATIENT TAKEN FROM CTA PULMONARY TO MRI, MRI NOTIFIED THAT SHE HAS ROOM ASSIGMENT.
--- NOTE | 2020-12-05 18:49 | NUR ---
PATIENT HAVING ANXIETY AND DIFFICULTY BEING STILL IN MRI, ATIVAN GIVEN TO ASSIST WITH OBTAINING STUDY.
--- NOTE | 2020-12-05 19:10 | NUR ---
PT ARRIVED TO UNIT VIA WHEELCHAIR, ESCORTED BY ER STAFF. POSITIONED IN BED FOR COMFORT, AND ORIENTED TO ROOM AND CALL LIGHT. SIDE RAILS PADDED FOR SEIZURE PRECAUTIONS. BED ALARM IN USE FOR SAFETY.
--- NOTE | 2020-12-05 19:35 | NUR ---
STARTED IV FLUIDS PER ORDER. TELEMETRY PLACED PER ORDER AND PT READING 97 SR AT THIS ASSESSMENT.
[2020-12-05 19:40] VITALS: BP 119/63; BMI 43.0
[2020-12-05] MEDS ORDERED: PROTONIX40 MG PO (19:53)
[2020-12-05] MEDS ORDERED: NYSTATIN1 PWD TOPICAL (19:53)
[2020-12-05] MEDS ORDERED: FUROSEMIDE40 MG PO (19:54)
[2020-12-05] MEDS ORDERED: ALBUTEROL SULF8.5 GM INH (19:56)
[2020-12-05] MEDS ORDERED: SINGULAIR10 MG PO (19:56)
[2020-12-05] MEDS ORDERED: CYMBALTA60 MG PO (19:57)
[2020-12-05] MEDS ORDERED: MIRAPEX1 MG PO (20:00)
--- NOTE | 2020-12-05 20:09 | NUR ---
ADMISSION ASSESSMENT AND HISTORY COMPLETE. PAGED NARROW FABRIC CALENDERER TO ADDRESS HOME MEDICATIONS.
--- NOTE | 2020-12-05 20:15 | NUR ---
PAGEVannesa MELGAR TO ADVISE THAT MED REC COMPLETE.
--- NOTE | 2020-12-05 22:35 | NUR ---
GAVE MORPHINE 4 MG IVP FOR C/O ACHING LEFT SIDE CHEST PAIN RADIATING TO LEFT JAW AT LEVEL 4/10. PLACED ON O2 AT 2L SPO2 88% AT THIS ASSESSMENT. ASSISTANT MANAGER CALLING CARDIOLOGY FOR CONSULT AT THIS TIME.
--- NOTE | 2020-12-05 22:45 | NUR ---
BOOKING CLERK REPORTS PTs MONITOR IS READING 117ST. 2/3 EKG PERFORMED PER ORDER, ABNORMAL RESULTS. NEW ONSET CHEST PAIN, RADIATING TO LEFT JAW. PRN PAIN MEDICATION GIVEN BY RN. HARPAL, RAMÓN DOMINGUEZ, NOTIFIED. CONSULTED CARDIOLOGY PER ORDER. DR. WALL REPORTS HE WILL ADDRESS IN MORNING, NO NEW ORDERS ADDED AT THIS TIME. CONTINUE TO MONITOR CLOSELY.
--- NOTE | 2020-12-05 23:00 | NUR ---
PT REPORTS RELIEF OF CHEST PAIN. CPOC.
[2020-12-06 00:19] LABS: APTT 25.8 SECONDS (22.8-39.4); INR 1.11 (0.85-1.17); PROTIME 13.3 SECONDS (11.6-15.0)
[2020-12-06 00:29] LABS: CKMB 0.7 U/L (0.0-3.6); CREATINE KINASE 58 UL (21-215); THYROID STIMULATING HORMONE 1.32 uIU/mL (0.36-3.74)
[2020-12-06 00:32] LABS: TROPONIN-I < 0.017 ng/mL (0.000-0.060)
[2020-12-06 04:30] VITALS: BP 115/64
[2020-12-06 05:58] LABS: BASOPHILS 0.5 % (0-2); EOSINOPHILS 2.8 % (0-7); HEMATOCRIT 34.5 % (36.0-48.0); HEMOGLOBIN 10.2 g/dL (12-16); IMMATURE GRANULOCYTES 0.2 % (0-5); LYMPHOCYTE ABS# 2.39 10x3/uL (1.18-3.74); LYMPHOCYTES 37.6 % (15-50); MCH 26.1 pg (26.0-34.0); MCHC 29.6 g/dL (31.0-37.0); MCV 88.2 fL (80.0-100.0); MEAN PLATELET VOLUME 11.5 fL (7.4-10.4); NEUTROPHIL ABS# 3.18 10x3/uL (1.56-6.13); NEUTROPHILS 49.9 % (40-80); PLATELET COUNT 187 10x3/uL (130-400); RBC 3.91 10x6/uL (4.00-5.40); WBC 6.4 10x3/uL (4.8-10.8)
[2020-12-06 06:08] LABS: ALBUMIN 3.1 g/dL (3.4-5.0); ALKALINE PHOSPHATASE 81 U/L (30-120); ALT (SGPT) 43 U/L (10-68); BILIRUBIN - TOTAL 0.36 mg/dL (0.2-1.3); CALCIUM 8.5 mg/dL (8.5-10.1); CARBON DIOXIDE 28.2 mmol/L (21.0-32.0); CHLORIDE - SERUM 109 mmol/L (98-107); CKMB 0.9 U/L (0.0-3.6); CREATINE KINASE 50 UL (21-215); CREATININE - SERUM 0.8 mg/dL (0.6-1.3); MAGNESIUM - SERUM 2.4 mg/dL (1.8-2.4); PROTEIN - SERUM 6.2 g/dL (6.4-8.2); SODIUM 144 mmol/L (136-145); UREA NITROGEN 14 mg/dL (7-18); eGFR NON AFRICAN AMERICAN 76 mL/min (90-120)
[2020-12-06 06:10] LABS: CALC OSMOLALITY 292 mosm/kg (275-300); GLUCOSE 188 mg/dL (74-106); TROPONIN-I < 0.017 ng/mL (0.000-0.060)
--- NOTE | 2020-12-06 08:06 | NUR ---
PATIENT LYING IN BED,WITHOUT DISTRESS.
--- NOTE | 2020-12-06 09:04 | NUR ---
AAOX4 UPON ENTERING. DR. WALL IN ROOM, WILL DO A CARDIAC CATH TOMORROW MORNING. ASSISTED PT IN SITTING UP IN BED TO EAT BREAKFAST. ADMINISTERED MORNING MEDICATION, NO DIFFICULTIES. DENIES ANY NEEDS AT THIS TIME. WILL CONTINUE POC.
--- NOTE | 2020-12-06 09:28 | NUR ---
PT STATES SHE HAD ANOTHER "EPISODE" WHILE I WAS OUT OF THE ROOM. STATES SHE REMEMBERS HER HEAD FEELING "FUZZY" AND HER BODY SHAKING AND THEN DOESN'T REMEMBER ANYTHING UNTIL COMING TOO. PT IS NOW FALLING ASLEEP MIDSENTENCE, SIMILAR TO A POSTICTAL STATE AFTERE A SEIZURE. SEIZURES PRECAUTIONS ARE IN PLACE.
[2020-12-06 09:34] VITALS: BP 112/66
[2020-12-06 09:50] LABS: CHOL - HDL RATIO 5.7 ratio (2.3-4.1); LDL-HDL RATIO 2.9 ratio (1.5-3.5)
--- NOTE | 2020-12-06 10:46 | NUR ---
ASSISTED PT TO BATHROOM, GAIT IS UNSTEADY AND SHUFFLING. SITUATED COMFORTABLY IN BED. FAMILY IS AT BEDSIDE. BED IN LOWEST POSITION, BED RAILS X3, CALL LIGHT WITHIN REACH. SEIZURE PRECAUTIONS IN PLACE. WILL COTINUE POC.
[2020-12-06 11:30] LABS: CKMB 0.9 U/L (0.0-3.6); CREATINE KINASE 59 UL (21-215); TROPONIN-I < 0.017 ng/mL (0.000-0.060)
--- NOTE | 2020-12-06 11:43 | NUR ---
IN BED WITH EYES CLOSED UPON ENTERING, AROUSES TO VOICE AND LIGHT STIMULI. ADMINISTERED MEDICATION, LAB AT BEDSIDE DRAWING BLOOD. 2 UNTIS INSULIN PER SLIDING SCALE FOR SUGAR OF 174. FMAILY AT BEDSIDE. DENIES ANY NEEDS AT THIS TIME. WILL CONTINUE POC.
--- NOTE | 2020-12-06 11:49 | NUR ---
IV PULLED OUT OF LEFT AC, CATHETER TIP INTACT. NO BLEEDING. WILL RESITE.
--- NOTE | 2020-12-06 12:56 | NUR ---
ADMINISTERED FIRST DOSE OF NEW KEPPRA DOSAGE PER DR. GRIFFIN. UPRIGHT IN BED. FAMILY AT BEDSIDE. DENIES ANY NEEDDS AT THIS TIME. WILL CONTINUE POC.
[2020-12-06 13:37] VITALS: BP 110/51
[2020-12-06] MEDS ORDERED: ROPINIROLE HCL2 MG PO ×2 (16:30→16:31)
[2020-12-06 17:41] VITALS: BP 104/53
--- NOTE | 2020-12-06 19:45 | NUR ---
RECEIVED BEDSIDE REPORT. PT LAYING IN BED A&O X4. PIV TO RIGHT HAND PATENT AND INFUSING, NO REDNESS OR SWELLING. 02 SAT 97% ON 3L VIA NC. TELEMETRY IN PLACE 95 SR. PT ABLE TO AMBULATE WITH ASSIST. EDUCATED PT ON SX PRECAUTIONS, FALL RISKS, CL AND NEEDS. PT VERBALIZED UNDERSTANDING. BED LOW, ALARM ON, CL IN REACH. WCTM.
[2020-12-06 20:00] VITALS: BP 119/59
--- NOTE | 2020-12-06 23:53 | NUR ---
ASSISTED PT WITH HIPPA CLEANSE, CLIPED AND SHAVED AREA FOR CATH, EDUCATED PT ON CONSENTS AND PT VERBALIZED UNDERSTANDING AND SIGNED PAPERWORK RN WITNESSED, ASSESSED HEIGHT AND WEIGHT, COLLECTED URINE SPECIMEN. PT TOLERATED WELL. BED LOW, ALARM ON, CL IN REACH.
[2020-12-07] VITALS: BP 95/71
[2020-12-07 00:46] LABS: UDS - AMPHET NEGATIVE QUAL (NEGATIVE); UDS - BARB NEGATIVE QUAL (NEGATIVE); UDS - BENZO NEGATIVE QUAL (NEGATIVE); UDS - COCAINE NEGATIVE QUAL (NEGATIVE); UDS - OPIATE POSITIVE QUAL (NEGATIVE); UDS - PCP NEGATIVE QUAL (NEGATIVE); UDS - THC POSITIVE QUAL (NEGATIVE)
[2020-12-07 00:47] LABS: BILIRUBIN NEGATIVE (NEGATIVE); KETONE NEGATIVE (NEGATIVE); NITRITE NEGATIVE (NEGATIVE); UROBILINOGEN NORMAL mg/dL (< 2)
[2020-12-07 00:49] LABS: WHITE CELLS - URINE 0-5 HPF (0-4)
[2020-12-07 00:50] LABS: BACTERIA FEW HPF (NONE SEEN); SQUAMOUS EPITHELIAL 0-5 HPF (0-4)
[2020-12-07 04:00] VITALS: BP 128/72
[2020-12-07 04:26] LABS: BASOPHILS 0.3 % (0-2); EOSINOPHILS 2.3 % (0-7); HEMATOCRIT 32.3 % (36.0-48.0); HEMOGLOBIN 9.6 g/dL (12-16); IMMATURE GRANULOCYTES 0.3 % (0-5); LYMPHOCYTE ABS# 2.34 10x3/uL (1.18-3.74); LYMPHOCYTES 32.1 % (15-50); MCH 26.2 pg (26.0-34.0); MCHC 29.7 g/dL (31.0-37.0); MCV 88.3 fL (80.0-100.0); MEAN PLATELET VOLUME 11.2 fL (7.4-10.4); MONOCYTES 6.6 % (2-11); NEUTROPHIL ABS# 4.27 10x3/uL (1.56-6.13); NEUTROPHILS 58.4 % (40-80); PLATELET COUNT 172 10x3/uL (130-400); RBC 3.66 10x6/uL (4.00-5.40); RDW 16.1 % (11.5-14.5); WBC 7.3 10x3/uL (4.8-10.8)
[2020-12-07 04:34] LABS: ALBUMIN 2.9 g/dL (3.4-5.0); ALKALINE PHOSPHATASE 72 U/L (30-120); ALT (SGPT) 37 U/L (10-68); BILIRUBIN - TOTAL 0.27 mg/dL (0.2-1.3); CALCIUM 8.4 mg/dL (8.5-10.1); CARBON DIOXIDE 29.9 mmol/L (21.0-32.0); CHLORIDE - SERUM 108 mmol/L (98-107); CREATININE - SERUM 0.8 mg/dL (0.6-1.3); MAGNESIUM - SERUM 1.9 mg/dL (1.8-2.4); POTASSIUM - SERUM 3.4 mmol/L (3.5-5.1); SODIUM 145 mmol/L (136-145); UREA NITROGEN 11 mg/dL (7-18); eGFR NON AFRICAN AMERICAN 76 mL/min (90-120)
[2020-12-07 04:35] LABS: CALC OSMOLALITY 289 mosm/kg (275-300); GLUCOSE 135 mg/dL (74-106)
--- NOTE | 2020-12-07 06:49 | NUR ---
SPOKE WITH DR WALL ABOUT HGB AND HCT RESULTS, HE STATED THEY WERE FINE FOR CATH THIS AM.
--- NOTE | 2020-12-07 09:43 | NUR ---
2ML AIR REMOVED FROM ZEPHYR BAND. NO BLEEDING NOTED AT SITE. WILL CONTINUE TO MONITOR. PT DROWSY, BUT AROUSEABLE. NO S/SX OF DISTRESS NOTED.
--- NOTE | 2020-12-07 10:24 | NUR ---
2 ML AIR RELEASED FROM ZEPHYR BAND. PT TOLERATED PROCEDURE WELL WITH NO S/SX OF DISTRESS. NO BLEEDING NOTED AT SITE. WILL CONTINUE TO MONITOR.
--- NOTE | 2020-12-07 10:44 | NUR ---
2 ML AIR RELEASED FROM ZEPHYR BAND. NO S/SX OF DISTRESS, NO BLEEDING NOTED AT SITE. WILL CONTINUE TO MONITOR.
--- NOTE | 2020-12-07 11:01 | NUR ---
REMAINING AIR REMOVED FROM ZEPHYR BAND. PT TOLERATED WELL. NO S/SX OF DISTRESS, NO BLEEDING AT RADIAL SITE. BANDAID APPLIED. WILL CONTINUE TO MONITOR.
[2020-12-07 12:29] VITALS: Ht 167.6 cm; Wt 120.7 kg
[2020-12-07 13:21] VITALS: BP 116/68
[2020-12-07] MEDS ORDERED: KEPPRA750 MG PO (15:27)
[2020-12-07 17:14] VITALS: BP 130/72
== END 2020-12-07 17:10 | disposition home or self-care (01) | DRG 101 ==
LOC: D.ER 14:38 → D.MS 16:38
PROVIDERS: Family Medicine; Internal Medicine Cardiovascular Disease; ADMIT Emergency Medicine; ATTEND Emergency Medicine
PROC: B2151ZZ Fluoroscopy of Left Heart using Low Osmolar Contrast (ICD-10-PCS; 2020-12-07)
PROC: 4A023N7 Measurement of Cardiac Sampling and Pressure, Left Heart, Percutaneous Approach (ICD-10-PCS; 2020-12-07)
PROC: B2111ZZ Fluoroscopy of Multiple Coronary Arteries using Low Osmolar Contrast (ICD-10-PCS; principal; 2020-12-07 07:37)
DX: R56.9 Unspecified convulsions (principal); F31.30 Bipolar disorder, current episode depressed, mild or moderate severity, unspecified; I25.110 Atherosclerotic heart disease of native coronary artery with unstable angina pectoris; D64.9 Anemia, unspecified; E11.65 Type 2 diabetes mellitus with hyperglycemia; E87.6 Hypokalemia; E11.40 Type 2 diabetes mellitus with diabetic neuropathy, unspecified; I10 Essential (primary) hypertension; J45.909 Unspecified asthma, uncomplicated; J44.9 Chronic obstructive pulmonary disease, unspecified; Z87.820 Personal history of traumatic brain injury; Z85.51 Personal history of malignant neoplasm of bladder; M19.90 Unspecified osteoarthritis, unspecified site; F32.9 Major depressive disorder, single episode, unspecified

== ENCOUNTER 2020-12-28 04:12 | Observation (INO) | payer MEDICARE ==
[~2020-12-28] VITALS: Ht 167.6 cm; Wt 118.2 kg
[~2020-12-28 04:12] MED LIST changes: +ALBUTEROL SULF8.5 GM INH; +CYMBALTA60 MG PO; +FUROSEMIDE40 MG PO; +KEPPRA750 MG PO; +PROTONIX40 MG PO
[2020-12-28 04:29] LABS: BASOPHILS 0.3 % (0-2); HEMATOCRIT 35.9 % (36.0-48.0); HEMOGLOBIN 10.9 g/dL (12-16); IMMATURE GRANULOCYTES 0.3 % (0-5); MCH 25.6 pg (26.0-34.0); MCHC 30.4 g/dL (31.0-37.0); MCV 84.5 fL (80.0-100.0); MONOCYTES 6.9 % (2-11); NEUTROPHIL ABS# 4.84 10x3/uL (1.56-6.13); NEUTROPHILS 54.5 % (40-80); PLATELET COUNT 199 10x3/uL (130-400); RBC 4.25 10x6/uL (4.00-5.40); RDW 16.8 % (11.5-14.5); WBC 8.9 10x3/uL (4.8-10.8)
[2020-12-28 04:34] VITALS: BP 99/47
[2020-12-28 04:42] LABS: CALC OSMOLALITY 280 mosm/kg (275-300); CALCIUM 8.7 mg/dL (8.5-10.1); CARBON DIOXIDE 28.4 mmol/L (21.0-32.0); CHLORIDE - SERUM 106 mmol/L (98-107); CREATININE - SERUM 0.9 mg/dL (0.6-1.3); GLUCOSE 91 mg/dL (74-106); POTASSIUM - SERUM 3.9 mmol/L (3.5-5.1); SODIUM 141 mmol/L (136-145); UREA NITROGEN 13 mg/dL (7-18); eGFR NON AFRICAN AMERICAN 66 mL/min (90-120)
[2020-12-28 04:43] LABS: APTT 25.8 SECONDS (22.8-39.4); INR 1.03 (0.85-1.17); PROTIME 12.5 SECONDS (11.6-15.0)
[2020-12-28 04:59] LABS: ALBUMIN 3.3 g/dL (3.4-5.0); ALKALINE PHOSPHATASE 82 U/L (30-120); ALT (SGPT) 30 U/L (10-68); BILIRUBIN - TOTAL 0.29 mg/dL (0.2-1.3); CKMB 0.8 U/L (0.0-3.6); CREATINE KINASE 39 UL (21-215); MAGNESIUM - SERUM 2.3 mg/dL (1.8-2.4); PROTEIN - SERUM 6.7 g/dL (6.4-8.2); TROPONIN-I < 0.017 ng/mL (0.000-0.060)
[2020-12-28 05:00] VITALS: BP 104/47
[2020-12-28 06:21] VITALS: BP 105/41; BMI 42.0
--- NOTE | 2020-12-28 07:20 | NUR ---
RECIEVE REPORT. ALERT AND ORIENTED X4. REPORTS CHEST PAIN 03/23. ADMINISTER MORPHINE FOR PAIN ORDERED. SINUS RHYTHM ON TELEMETRY. DENIES ANY OTHER NEEDS. CONTINUE PLAN OF CARE AND SAFETY PRECAUTIONS.
[2020-12-28] MEDS ORDERED: ROPINIROLE HCL2 MG PO (08:18)
[2020-12-28 09:21] VITALS: BP 112/46
[2020-12-28 11:12] LABS: CKMB 0.8 U/L (0.0-3.6); CREATINE KINASE 40 UL (21-215); TROPONIN-I < 0.017 ng/mL (0.000-0.060)
[2020-12-28 12:52] VITALS: Ht 167.6 cm; Wt 118.2 kg
[2020-12-28 13:29] VITALS: BP 95/55
[2020-12-28 16:43] LABS: CKMB 0.9 U/L (0.0-3.6); CREATINE KINASE 43 UL (21-215); TROPONIN-I < 0.017 ng/mL (0.000-0.060)
--- NOTE | 2020-12-28 17:21 | NUR ---
ALERT AND ORIENTED X4. SITTING UP IN BED. DC LT AC IV TIP INTACT. DISCHARGE PAPERS SIGNED ON CHART. DISCHARGE INSTRUCTIONS GIVEN VERBALLY AND WRITTEN. ESCORT TO RIDE VIA WHEELCHAIR. REMAINS FREE FROM INJURY.
== END 2020-12-28 17:22 | disposition home or self-care (01) ==
LOC: D.ER 04:12 → D.M2 05:22 → OBSVTIME 05:22 → D.M2 17:22
PROVIDERS: Family Medicine; ADMIT Family Medicine; ATTEND Family Medicine
DX: R07.9 Chest pain, unspecified (principal); E11.40 Type 2 diabetes mellitus with diabetic neuropathy, unspecified; Z79.84 Long term (current) use of oral hypoglycemic drugs; J44.9 Chronic obstructive pulmonary disease, unspecified; Z72.0 Tobacco use; I25.10 Atherosclerotic heart disease of native coronary artery without angina pectoris; I10 Essential (primary) hypertension; E78.5 Hyperlipidemia, unspecified; E66.9 Obesity, unspecified; Z68.41 Body mass index [BMI] 40.0-44.9, adult